=== PATIENT | female | born 1945 | race Caucasian/White ===

== ENCOUNTER 2018-03-06 14:45 | Inpatient (IN) | payer MEDICARE, OTHER ==
[2018-03-06] MEDS: LACTULOSE 20 GM/30 ML UDC PO SCH ×2 (15:55→22:00)
[2018-03-06] MEDS: PROPRANOLOL HCL 10 MG TABLET PO SCH ×2 (15:55→22:03)
--- NOTE | 2018-03-06 16:49 | Rehab Evaluation ---
Patient Information - Patient Information Diagnosis: general deconditioning d/t R humeral fx s/p fall Ordered Treatment: OT Evaluate and Treat Status: Initial Evaluation Surgery: No Past Medical/Surgical Hx: PAST MEDICAL/SURGICAL HISTORY Past Surgical History Abd surgery for adhesions of intestinal tract. ; T&A PMH - Respiratory Hx Respiratory Disorders Yes Comment: lung disease PMH - Cardiovascular Hx Cardiovascular Disorders No PMH - Neuro Hx Neurological Disorders Yes Hx Dementia Yes PMH - GI Hx Liver Disease Yes Hx Rectal Bleeding Yes: Varices Comment: portal hypertension and cirrhosis PMH - Hx Genitourinary Disorders No PMH - Endocrine Hx Endocrine Disorders Yes Hx Diabetes Yes Hx Thyroid Disease No PMH - Musculoskeletal Hx Musculoskeletal Disorders No Hx Arthritis Yes PMH - Psych Hx Psychiatric Problems No PMH - Hematology/Oncology Hx Hematology/Oncology No Disorders Premorbid Status: Detail (Pt. was modified Ind. with mobility (with use of small base quad cane) prior to fall. Modified Ind. with self-care skills and indoor household management. Pt. has not driven since 2014, and receives assistance from her friend Heron with transportation and to bring groceries as needed. Pt. previously stood while showering 2-3x/week, and took sponge baths in between as needed. Pt. 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 currently lives alone in a 1 story house with basement. 1 large step to enter with railing on L side ascending. Pt. does not go into the basement; all needs are met on main floor, including laundry. Bathroom has a standard toilet with no grab bars, and tub/shower combo with curtain, fixed shower head, and 1 grab bar. Pt. stated she has everything in boxes and plans to move but was unsure of when.) Precautions: [place], Fall, Other ([id number] on RUE. Wear sling.) - Time With Patient Total Time Spent With Patient (Min): 30 Treatment Procedures: Detail (OT Edgar Olsen. Session was concluded with pt. supine in bed, bed rails up, call light and bedside tray within reach of LUE.) Subjective Information - Subjective Information Per Patient (L hand dominant. Pt. hx and subjective information was sometimes unclear from pt's loquacious report with disorganized thought pattern. Questions were asked to obtain more specifics, but this seemed to lead to greater confusion.) Objective Data - Pain Pain Present: Yes (04/16 pain RUE. Nursing staff is aware.) - Mental Status Patient Orientation: Oriented x3 (Pt. may have some mild neurocognitive deficits , but is unclear at this time (see subjective section).) - Visual Perception Appears within normal limits for therapeutic activities - ROM Other (LUE AROM WNL all motions. RUE NT at this time d/t high pain level and pt. declined.) - Strength/Tone Other (LUE MMT 4/5. RUE NT at this time d/t contraindications.) - Bed Mobility Independent (Pt. was modified Ind. supine with HOB raised to seated EOB with use of bed rail.) - Transfers Independent (modified Ind. sit<>stand from EOB to cane) - Balance Balance Sitting: Fair (Pt. required some LUE support while seated when PT was testing strength in LE, and while seated on toilet to doff briefs (while lifting one LE).) Balance Standing: Fair (modified Ind. with use of cane. PT will assess balance further.) - ADL's/IADL's Detail (Educ. was provided in use of buttons to control movement of bed using LUE to increase Ind. with bed mobility. Min A to thread LE into briefs while doffing and donning seated on toilet (pt. required UE support on grab bar while lifting a LE). Min A to manage clothing (pull up on R side) during toileting. Pt. became quickly fatigued (approx. 2 mins. into session), and required a rest break to lay in bed.) Therapy Assessment - Therapy Assessment Detail (Pt. would benefit from skilled OT services to maximize safety and Ind. in ADL's.) Patient Education - Patient Education Teaching Topic: Equipment Use (manipulation of environment, bed controls) Response: Return Demonstration, Verbalize Understanding Teaching Method: Discussion, Demonstration Teaching Recipient: Patient Barriers To Learning: Cognitive/Verbal, Cognitive/Written Problem List - Problem List Occupational Therapy Problem List: Detail (Decreased independence and safety with ADL's, impaired ROM and strength RUE, decreased strength LUE, decreased tolerance for activity participation (endurance)) Goals - Goals Occupational Therapy Goals: 1) Test RUE AROM per pt's tolerance. 2) Pt. will demo. ability to safely dress TB with modified Ind. 3) Pt. will demo. tub t/f safely with modified Ind. 4) Pt. will increase activity tolerance to at least 10 mins. to allow pt. to complete typical morning ADL routine with no more than 3 seated rest breaks. 5) Maximize bilateral site surveyor strength to minimize R muscular atrophy. 6) Maximize RUE AROM (per pt's tolerance and precautions) to prevent adhesive capsulitis and other joint problems. Prognosis - Prognosis Good Plan - Plan Occupational Therapy Plan: Pt. will be seen 2-4 x/week Mon-Fri during typical business hours until OT goals are met and/or pt. is d/c.
--- NOTE | 2018-03-06 17:18 | Rehab Evaluation ---
Patient Information - Patient Information Diagnosis: general deconditioning d/t R humeral fx s/p fall Ordered Treatment: PT Evaluate and Treat Status: Initial Evaluation Surgery: No Past Medical/Surgical Hx: PAST MEDICAL/SURGICAL HISTORY Past Surgical History Abd surgery for adhesions of intestinal tract. ; T&A PMH - Respiratory Hx Respiratory Disorders Yes Comment: lung disease PMH - Cardiovascular Hx Cardiovascular Disorders No PMH - Neuro Hx Neurological Disorders Yes Hx Dementia Yes PMH - GI Hx Liver Disease Yes Hx Rectal Bleeding Yes: Varices Comment: portal hypertension and cirrhosis PMH - Hx Genitourinary Disorders No PMH - Endocrine Hx Endocrine Disorders Yes Hx Diabetes Yes Hx Thyroid Disease No PMH - Musculoskeletal Hx Musculoskeletal Disorders No Hx Arthritis Yes PMH - Psych Hx Psychiatric Problems No PMH - Hematology/Oncology Hx Hematology/Oncology No Disorders Premorbid Status: Detail (Pt. was modified Ind. with mobility (with use of small base quad cane) prior to fall. Modified Ind. with self-care skills and indoor household management. Pt. has not driven since 2014, and receives assistance from her friend Heron with transportation and to bring groceries as needed. Pt. previously stood while showering 2-3x/week, and took sponge baths in between as needed.) Social History: Detail (Pt. currently lives alone in a 1 story house with basement. 1 large step to enter with railing on L side ascending. Pt. does not go into the basement; all needs are met on main floor, including laundry. Bathroom has a standard toilet with no grab bars, and tub/shower combo with curtain, fixed shower head, and 1 grab bar.) Precautions: [place], Fall, Other ([id number] on RUE. Wear sling.) - Time With Patient Total Time Spent With Patient (Min): 30 Treatment Procedures: Detail (Initial Evaluation) Subjective Information - Subjective Information Per Patient (The patient complained of R shoulder pain ( deltoid region)) Objective Data - Pain Pain Present: Yes Pain Intensity: 9 Pain Scale Used: Numeric (1 - 10) - Mental Status Patient Orientation: Oriented x3 (The patient was tangetial at times, disorganized thought pattern.) - Visual Perception Appears within normal limits for therapeutic activities - ROM Within normal limits (LE AROM was WNL refer to OT note UE AROM.) - Strength/Tone Not within normal limits (LE strength was 4+/5 in knee and ankle musculature , hip musculature was 4/5.) - Bed Mobility Independent (Independent supine to and from sit transfer.) - Transfers Independent (sit to and from stand. Supervison for safety with toilet transfer.) - Balance Balance Sitting: Fair (The patient used arm support when lifting one LE both on toilet and on bed.) Balance Standing: Fair (The patient required hand hold to ambulate.) - Gait Detail (The patient ambulated with hand hold of one 13 feet x 2. The patient expressed fatigue after ambulation. The patient was given a small base quad cane to use since she stated this is what she used at home.) Therapy Assessment - Therapy Assessment Detail (The patient exhibited decreased balance, decreased hip strength and decreased ability to complete prolonged functional activities. Feel the patient is a good rehab candidate.) Problem List - Problem List Physical Therapy Problem List: Detail (1) Decreased balance 2) Decreased bilateral hip strength 3) Decreased ability to complete porlonged physical activity.) Goals - Goals Physical Therapy Goals: 1) The a patient will ambulate with assistive device distances of 150 feet. 2) The patient will ambulate on stairs independently with use of railings. 3) Increase LE strength 1/3 muscle grade to increase stability of gait. 4) Assess balance using objective balance test. 5) The patient will toilet 30 minutes of physical activity. Prognosis - Prognosis Good Plan - Plan Physical Therapy Plan: PT M-F for balance and LE strengthening exercises, gait training and level and stairs.
[2018-03-06] MEDS: HYDROCODONE/APAP 5/325MG TABLET PO PRN ×2 (19:00→23:02)
[2018-03-06] MEDS: CHOLECALCIFEROL 1,000 UNIT TABLET PO SCH (22:04)
[2018-03-06] MEDS: FERROUS SULFATE 325 MG TAB PO SCH (22:05)
[2018-03-07] MEDS: HYDROCODONE/APAP 5/325MG TABLET PO PRN ×2 (04:07→08:04)
[2018-03-07] MEDS: LEVOTHYROXINE SODIUM 75 MCG TABLET PO SCH (06:46)
[2018-03-07] MEDS: CHOLECALCIFEROL 1,000 UNIT TABLET PO SCH ×3 (08:05→21:48)
[2018-03-07] MEDS: FERROUS SULFATE 325 MG TAB PO SCH ×3 (08:05→21:48)
[2018-03-07] MEDS: PROPRANOLOL HCL 10 MG TABLET PO SCH ×4 (08:05→21:48)
[2018-03-07] MEDS: LACTULOSE 20 GM/30 ML UDC PO SCH ×4 (08:06→21:52)
[2018-03-07] MEDS: GUAIFENESIN 600 MG TABCR PO SCH ×2 (09:33→09:37)
[2018-03-07] MEDS: MULTIVITAMINS/MINERALS TABLET PO SCH (09:38)
[2018-03-07] MEDS: SPIRONOLACTONE 25 MG TAB PO SCH (09:38)
--- NOTE | 2018-03-07 12:07 | History & Physical ---
History of Present Illness - Date Date of Service for History & Physical: 03/07/18 - History of Present Illness Admitting Diagnosis: Deconditioning due to fractured right humerus History of Present Illness: Alma Rosa Castaneda is a 73 year old female who admitted to [facility] on 03/01/2018 after sustaining a right proximal humerus fracture d/t a mechanical fall in her home as well as osteoporosis. She was followed by orthopedist Dr. Moyer while hospitalized. No surgical intervention was done. While hospitalized, she received a CT of her head and cervical spine which were negative for acute process. D/t physical deconditioning and pain control, pt required further pt/ot services. 03/07/2018: Pt is a poor historian at this time and it is difficult to ascertain medical history. She reports that she has a hx of HTN but doesn't know what meds she takes for it, that she was told once that she had diabetes but "keeps it controlled, less than 200, with food" and that she has been "spilling ammonia since 2014". Review of the her records indicates PMHx of HTN, Cirrhosis of Liver , Dementia, hypothyroidism, diabetes mellitus and GERD. States that her PCP is Dr. Venegas. Pt c/o pain 5/10 at rest in the right upper arm that is "not tolerable". Reports numbness and tingling in right finger tips. Pt is taking [place] 5/235mg nearly every 4 hours. Vitals: BP 94/50, HR 56 which are similar to recordings while hospitalized at [facility] and no adjustments were made to propranolol or spironolactone. Pt denies dizziness or lightheadedness. General - Customary Routine Typical Morning Leisure Routine: gets up early (5am) and reads or works on bills when there are no distractions Typical Evening Leisure Routine: goes to bed [id number] - Cognitive Patterns Speech: Normal Thought Process: Intact Thought Content: Normal Orientation: Oriented x3 Brief Interview for Mental Status Score: 14 - Communication Preferred Language?: Ivorian Dispatcher Service Chief Required: No Level of Education: College Preferred Method of Learning: Seeing, Doing, Reading Comprehension Ability: No Impairment Able to Read: Yes Able to Write: Yes Select best description of speech pattern: Clear Speech Ability to express ideas and wants: Understood Understanding verbal content: Understands - Mood and Behavior Patterns Appearance: Well Groomed Mood: Normal Attitude: Cooperative Motor Activity: Calm Affect: Appropriate Hallucinations: Denies - Patient Health Questionnaire (PHQ-9) Little interest or pleasure in doing things frequency: Never or 1 day Feeling down, depressed, or hopeless frequency: Never or 1 day Trouble falling/staying asleep or sleeping to much frequency: Never or 1 day Feeling tired or having little energy frequency: Never or 1 day Poor appetite or overeating frequency: Never or 1 day Feeling bad about yourself frequency: Never or 1 day Trouble concentrating on things frequency: 2-6 days Moving/Speaking slowly or fidgety/restless frequency: Never or 1 day Thoughts that you would be better off frequency: Never or 1 day - Psychosocial Well-Being Usual Living Arrangement: Alone Living Arrangement Comment: Lives alone in apartment. Relationship Status: Current and Past Employment History: Retired Clubs/Organizations Belongs To: none Scientology: Other Scientology Comment: metaphysical latter-day Spiritual Needs: none stated Shinto: Metaphysical Verbalizes Interest in Activities During Stay: Yes Specify Interests: knitting, needlepoint, tv (animal planet and hgtv), comedy, reading Personality: Introverted States they do not want to participate in group activities: Yes (states does not like groups) Patient Involved in the Community: No Describe Involvement: none at this time Patient Drives: No Patients Leisure Activities Prior to Admission: knitting, tv, needlepoint Plans to Return to the Following Leisure Activities: see above - Physical Functioning Activity Level: Up with assist x1 Turning: Self ad tatiana ROM Ability: Within Normal Limits Assistive Devices: Quad Cane Ambulation Ability: Independent Bed Mobility: Needs Assist Transfer Ability: Needs Assist Bathing Ability: Independent Personal Hygiene: Needs Assist Dressing Ability: Independent Eating (Feeding) Ability: Independent Toileting Ability: Independent Administer Own Medication: Independent Care Ability Comment: Needs assistance with ADL's due to inability to use right arm-cont. in sling. - Dental Status Unable to examine: No Broken or loosely fitting full or partial dentures: No No natural teeth or tooth fragment(s) (edentulous): No Abnormal mouth tissue (ulcers, masses, oral lesions, etc.): No Obvious or likely cavity or broken natural teeth: No Inflamed or bleeding gums or loose natural teeth: No Mouth/facial pain, discomfort or difficulty chewing: No - Nutrition Screening Poor oral intake > 1 week: No Unplanned weight loss in specified time frame: No Nutrition Support via tube feedings or parenteral nutrition: No Pressure Ulcer: No Significantly underweight define as BMI <18.5 kg/m2: No Albumin <2.5mg/dL: No Persistent nausea/vomiting/diarrhea >3 days: No Difficulty chewing/swallowing/mouth sores: No Admitting Diagnosis: Yes Nutrition Risk Score: Low Risk Review of Systems Constitutional: Denies: Fever, Weakness Respiratory: Denies: Cough, Dyspnea, Wheezes Cardiovascular: Reports: Dyspnea on exertion. Denies: Chest pain Gastrointestinal: Denies: Abdominal pain, Constipation, Nausea Musculoskeletal: Reports: As per HPI Skin: Reports: Bruising Neurological: Reports: Headache, Numbness (Right hand finger tips), Tingling ( right hand fingertips). Denies: Confusion (Denies but stated "My friend Heron thinks I am loopy right now.") Psychiatric: Denies: Anxiety, Depression Past Medical History - SOCIAL HISTORY Smoking Status: Never smoker Alcohol Use: None Drug use: None - SURGICAL HISTORY Past Surgical History: Abd surgery for adhesions of intestinal tract. ; T&A - RESPIRATORY Hx Respiratory Disorders: Yes Comment:: lung disease - CARDIOVASCULAR Hx Cardio Disorders: No Hx Hypertension: Yes - NEURO Hx Neuro Disorders: Yes Hx Dementia: Yes - GI Hx Liver Disease: Yes Comment:: portal hypertension and cirrhosis - Hx Genitourinary Disorders: No - ENDOCRINE Hx Endocrine Disorders: Yes Hx Diabetes: Yes Hx Thyroid Disease: No - MUSCULOSKELETAL Hx Musculoskeletal Disorders: No Hx Arthritis: Yes - PSYCH Hx Psych Problems: No - HEMATOLOGY/ONCOLOGY Hx Hematology/Oncology Disorders: No Family Medical History Any Significant Family History?: No Family Hx Comment (NOT TO BE USED IN PLACE OF ITEMS BELOW): Pt was adopted- history unknown H&P Meds/Allergies - Allergies Allergies: Allergies Allergy/AdvReac Type Severity Reaction Status Date / Time Penicillins [PENICILLINS] Allergy Unknown HYPERSENSIT Verified 12/20/13 15:58 IVITY - Home Medications Home Medications Medication Instructions Recorded Confirmed Last Taken Cholecalciferol (Vitamin D3) 2,000 unit PO BID 03/06/18 03/06/18 Unknown [Vitamin D3] Guaifenesin [Mucinex] 600 mg PO DAILY 03/06/18 03/06/18 Unknown Hydrocodone/Acetaminophen [[place] 1 each PO Q4H PRN 03/06/18 03/06/18 Unknown 5-325 Tablet] Levothyroxine Sodium [Synthroid] 75 mcg PO DAILY 03/06/18 03/06/18 Unknown Lima-3 Fatty Acids [Lima-3] 1,000 mg PO DAILY 03/06/18 03/06/18 Unknown Vitamin B Complex 1 each PO DAILY 03/06/18 03/06/18 Unknown - Active Medications Active Medications: Current Medications Acetaminophen (Tylenol 325mg) 650 mg PO TID [facility] Hydrocodone Bitart/Acetaminophen ([place] 7.5mg/325mg) 1 each PO Q8H PRN PRN Reason: PAIN - MOD TO SEVERE (5-10) Ferrous Sulfate (Iron) 325 mg PO BID [facility] Last Admin: 03/07/18 09:32 Dose: Not Given Guaifenesin (Mucinex) 600 mg PO DAILY [facility] Last Admin: 03/07/18 09:37 Dose: 600 mg Lactulose (Lactulose) 30 gm PO TID [facility] Last Admin: 03/07/18 09:32 Dose: Not Given Levothyroxine Sodium (Synthroid) 75 mcg PO DAILYTHY [facility] Last Admin: 03/07/18 06:46 Dose: 75 mcg Lidocaine (Lidoderm) 1 each TOP DAILY [facility] Multivitamins/Minerals (Centrum) 1 tab PO DAILY [facility] Last Admin: 03/07/18 09:38 Dose: 1 tab Pantoprazole Sodium (Protonix) 40 mg PO 1200 DEB[facility]AH Propranolol HCl (Inderal) 10 mg PO TID [facility] Last Admin: 03/07/18 09:32 Dose: Not Given Spironolactone (Aldactone) 100 mg PO DAILY [facility] Last Admin: 03/07/18 09:38 Dose: 100 mg Vitamin D (Vitamin D3) 2,000 unit PO BID [facility] Last Admin: 03/07/18 09:33 Dose: Not Given Physical Exam - Vital Signs Vital Signs: Vital Signs - Last 24 Hrs Temp Pulse Resp BP Pulse Ox 03/07/18 07:56 97.3 F L 56 L 16 94/50 95 03/06/18 20:00 97.5 F L 57 L 16 95/49 95 03/06/18 14:45 98.0 F 62 18 116/56 96 - General General Appearance: Alert, Cooperative, No acute distress Limitations: Physical limitation - Head Head exam: Normocephalic - Eye Eye exam: Normal appearance - ENT ENT exam: Mucous membranes moist - Neck Neck exam: Normal inspection - Respiratory Respiratory exam: Normal lung sounds bilaterally. negative: Accessory muscle use - Cardiovascular Cardiovascular Exam: Regular rate, Normal rhythm, Normal heart sounds Peripheral Pulses: 2+: Radial (R), Radial (L) - GI/Abdominal GI/Abdominal exam: Soft, Hyperactive bowel sounds. negative: Distended, Tenderness - Rectal Rectal exam: Deferred - exam: Deferred - Extremities Extremities exam: Pedal edema. negative: Calf tenderness, Tenderness - Neurological Neurological exam: Alert - Psychiatric Psychiatric exam: Other (tangential) - Skin Skin exam: Dry, Intact Discharge Potential - Discharge Needs Community Services Used Prior to Admission: Transportation Patient Discharge Plan Description: Return Home, Visiting Nurse Community Services Needed at Discharge: Occupational Therapy, Physical Therapy, Transportation Plan - Swing Bed Certification Initial Certification Due: 03/06/18 14 Day Re-Cert Due: 03/20/18 44 Day Re-Cert Due: 04/19/18 74 Day Re-Cert Due: 05/19/18 - Detailed Diagnosis and Plan (1) Physical deconditioning Current Visit: Yes Status: Acute Base Code: R53.81 - OTHER MALAISE Comment : 03/07/2018 -Transfer from [facility] d/t deconditioning from hospitalization r /t right humeral fracture after mechanical fall -PT/OT evaluation and treatment -NWB to RUE, pt to wear sling (2) Closed fracture of right proximal humerus Current Visit: Yes Status: Acute Base Code: S42.201A - UNSP FRACTURE OF UPPER END OF RIGHT HUMERUS, INIT Comment: 03/07/2018 -PT/OT evaluation and treatment -NWB RUE, wear sling -F/u with Dr. Moyer on 03/20/2018 (3) Pain due to fracture Current Visit: Yes Status: Acute Base Code: T14.8XXA - OTHER INJURY OF UNSPECIFIED BODY REGION, INITIAL ENCOUNTER Comment: 03/07/2018 -Scheduled Tylenol 650mg PO TID -Changed [place] to 7.5/325mg PO q. 8 hours PRN -Ordered Lidoderm patch on for 12 hours, off for 12 hours to right humerus (4) Hypotension Current Visit: Yes Status: Acute Base Code: I95.9 - HYPOTENSION, UNSPECIFIED Comment: 03/07/2018: -BP and HR congruent with [facility] records and no changes made -Continue Spironolactione 100mg daily and Propranolol 10mg TID -Should pt become symptomatic, will re-evaluate medication dosages -Monitor vital signs q. 12 hours (5) Full code status Current Visit: Yes Status: Acute Base Code: Z78.9 - OTHER SPECIFIED HEALTH STATUS Comment: 03/07/2018 -Pt is a full code (6) Diabetes mellitus Current Visit: Yes Status: Acute Base Code: E11.9 - TYPE 2 DIABETES MELLITUS WITHOUT COMPLICATIONS Comment: 03/07/2018 -Unclear history on Diabetes mellitus diagnosis and medication management -Start Accucheck q. am prior to breakfast to monitor
[2018-03-07] MEDS: ACETAMINOPHEN 325 MG TAB PO SCH ×3 (14:04→21:47)
[2018-03-07] MEDS: HYDROCODONE/APAP 7.5/325MG TABLET PO PRN (14:04)
[2018-03-07] MEDS: LIDOCAINE 5% PATCH TOP SCH (14:06)
--- NOTE | 2018-03-07 15:12 | Physical Therapy Tx Note ---
Physical Therapy Tx Note - Treatment Note Tolerated: Good Total Time Spent With Patient: 30 Physical Therapy Tx Note: Detail (Patient states right upper arm painful and sore today. Patient was ambulating to and from bathroom with nursing upon STRIP POLISHER arrival. Patient transferred sit to and from stand SBA x1. Patient ambulated 130 feet with quad cane SBA x1. Patient was instructed in correct gait pattern with quad cane. Patient performed the following exercises x10-15 reps each seated on edge of bed: glut squeezes, heel raises, toe raises, marching, hamstring sets, isometric hip abduction, isometric hip adduction, and LAQ. Patient transferred supine to sit independently. Patient reports feeling tired after treatment. Patient was left supine in bed with call light within reach.) Physical Therapy Problem List: Detail (1) Decreased balance 2) Decreased bilateral hip strength 3) Decreased ability to complete porlonged physical activity.) Physical Therapy Goals: 1) The a patient will ambulate with assistive device distances of 150 feet. 2) The patient will ambulate on stairs independently with use of railings. 3) Increase LE strength 1/3 muscle grade to increase stability of gait. 4) Assess balance using objective balance test. 5) The patient will toilet 30 minutes of physical activity. Prognosis: Good Physical Therapy Plan: PT M-F for balance and LE strengthening exercises, gait training and level and stairs.
[2018-03-07] MEDS: PANTOPRAZOLE SODIUM 40 MG TABLET PO SCH (16:11)
--- NOTE | 2018-03-07 16:36 | Occupational Therapy Tx Note ---
Occupational Therapy Tx Note - Treatment Note Tolerated: Fair Total Time Spent With Patient: 35 Occupational Therapy Treatment Note: Detail (Attempted to do ADL's at the sink ( wash face, brush hair & teeth), but pt. reported she already did that and was also already dressed. Pt. stated she didn't need help with LB dressing, but needed some assistance with UB dressing. Educ. with h/o and yellow putty provided in bilateral dairy laboratory technician & pinch strength HEP; pt. returned demo. and verbalized understanding but required multiple repetitions with majority of the exercises. Pt. required mod VC to use RUE instead of only L. RUE was removed from sling to participate in AROM; pt. used L hand to AAROM at times. Elbow flex , ext, forearm sup/pro, wrist flex, ext, and digits approx. 1x10 ea. slowly. Pt. required min [place] A to comprehend directions, and slow gentle PROM to extend elbow to full ROM (was not painful). Educ. was provided in importance of ROM exercises (especially full elbow ext); pt. verbalized understanding. Assistance was provided to don sling. Cont. POC and adv. as yana. Follow-up on putty HEP understanding.) Occupational Therapy Problem List: Detail (Decreased independence and safety with ADL's, impaired ROM and strength RUE, decreased strength LUE, decreased tolerance for activity participation (endurance)) Occupational Therapy Goals: 1) Test RUE AROM per pt's tolerance. 2) Pt. will demo. ability to safely dress TB with modified Ind. 3) Pt. will demo. tub t/f safely with modified Ind. 4) Pt. will increase activity tolerance to at least 10 mins. to allow pt. to complete typical morning ADL routine with no more than 3 seated rest breaks. 5) Maximize bilateral dairy laboratory technician strength to minimize R muscular atrophy. 6) Maximize RUE AROM (per pt's tolerance and precautions) to prevent adhesive capsulitis and other joint problems. Prognosis: Good (with pt. participation in therapy sessions (especially ADL training), and HEP.) Occupational Therapy Plan: Pt. will be seen 2-4 x/week Mon-Fri during typical business hours until OT goals are met and/or pt. is d/c.
[2018-03-07] MEDS: REMOVE PATCH 1 EACH MISC TD SCH (21:53)
[2018-03-08] MEDS: LEVOTHYROXINE SODIUM 75 MCG TABLET PO SCH (06:04)
[2018-03-08] MEDS: LACTULOSE 20 GM/30 ML UDC PO SCH ×4 (08:38→22:03)
[2018-03-08] MEDS: SPIRONOLACTONE 25 MG TAB PO SCH ×2 (08:39→09:16)
[2018-03-08] MEDS: MULTIVITAMINS/MINERALS TABLET PO SCH ×2 (08:39→09:16)
[2018-03-08] MEDS: PROPRANOLOL HCL 10 MG TABLET PO SCH ×4 (08:39→22:01)
[2018-03-08] MEDS: ACETAMINOPHEN 325 MG TAB PO SCH ×4 (08:40→22:01)
[2018-03-08] MEDS: CHOLECALCIFEROL 1,000 UNIT TABLET PO SCH ×3 (08:40→22:02)
[2018-03-08] MEDS: FERROUS SULFATE 325 MG TAB PO SCH ×3 (08:40→22:01)
[2018-03-08] MEDS: GUAIFENESIN 600 MG TABCR PO SCH ×3 (08:41→22:02)
[2018-03-08] MEDS: HYDROCODONE/APAP 7.5/325MG TABLET PO PRN ×2 (09:13→19:38)
[2018-03-08] MEDS: LIDOCAINE 5% PATCH TOP SCH (09:15)
--- NOTE | 2018-03-08 11:15 | Physical Therapy Tx Note ---
Physical Therapy Tx Note - Treatment Note Tolerated: Good Total Time Spent With Patient: 30 Physical Therapy Tx Note: Detail (Patient reports no new complaints. Patient transferred supine to sit independently. Patient transferred sit to and from stand x2 SBA x1. Patient ambulated 13 feet with quad cane x2 SBA x1. Patient donned pants min assist x1 to help get right LE in pants. Patient doffed gown and donned shirt with assistance. Patient doffed socks independently, donned socks with assistance. Patient donned shoes independently. Patient transferred sit to and from stand SBA x1. Patient ambulated 108 feet with quad cane SBA x1. Patient transferred sit to and from stand SBA x1. Patient transferred sit to supine independently. Patient tolerated treatment well. Patient required minimal verbal cueing to lead with correct foot, but displayed improved gait pattern today with cane. Patient reports fatigued after treatment. Patient was left supine in bed with call light within reach.) Physical Therapy Problem List: Detail (1) Decreased balance 2) Decreased bilateral hip strength 3) Decreased ability to complete porlonged physical activity.) Physical Therapy Goals: 1) The a patient will ambulate with assistive device distances of 150 feet. 2) The patient will ambulate on stairs independently with use of railings. 3) Increase LE strength 1/3 muscle grade to increase stability of gait. 4) Assess balance using objective balance test. 5) The patient will toilet 30 minutes of physical activity. Prognosis: Good Physical Therapy Plan: PT M-F for balance and LE strengthening exercises, gait training and level and stairs.
--- NOTE | 2018-03-08 14:17 | Physical Therapy Tx Note ---
Physical Therapy Tx Note - Treatment Note Tolerated: Good Total Time Spent With Patient: 30 Physical Therapy Tx Note: Detail (Pt sitting up at bedside upon arrival. Administered Tinetti gait and balance assessment: gait score 8/12, balance score 14/16 for total of = moderate risk for falls; score affected by use of assistive device, asymmetry of steps, mild deviation of path; stands with wide base of support upon arising, unsteady when nudged. Ambulated w/WBQC w/ CGA from bedside to hallway and back, about 48 feet. Transferred to bedside chair independently, then changed her mind and wanted to get back in bed. Did so independently. Replaced ice pack for shoulder; left in bed with bedside table and call light in reach. Nrsg notified.) Physical Therapy Problem List: Detail (1) Decreased balance 2) Decreased bilateral hip strength 3) Decreased ability to complete porlonged physical activity.) Physical Therapy Goals: 1) The a patient will ambulate with assistive device distances of 150 feet. 2) The patient will ambulate on stairs independently with use of railings. 3) Increase LE strength 1/3 muscle grade to increase stability of gait. 4) Assess balance using objective balance test: Tinetti on 03/08/18. 5) The patient will toilet 30 minutes of physical activity. Prognosis: Good Physical Therapy Plan: PT M-F for balance and LE strengthening exercises, gait training and level and stairs.
[2018-03-08] MEDS: PANTOPRAZOLE SODIUM 40 MG TABLET PO SCH (16:58)
[2018-03-08] MEDS: REMOVE PATCH 1 EACH MISC TD SCH (22:07)
[2018-03-09] MEDS: LEVOTHYROXINE SODIUM 75 MCG TABLET PO SCH (07:22)
[2018-03-09] MEDS: HYDROCODONE/APAP 7.5/325MG TABLET PO PRN ×2 (08:34→22:37)
[2018-03-09] MEDS: MULTIVITAMINS/MINERALS TABLET PO SCH (10:00)
[2018-03-09] MEDS: FERROUS SULFATE 325 MG TAB PO SCH ×2 (10:01→22:38)
[2018-03-09] MEDS: CHOLECALCIFEROL 1,000 UNIT TABLET PO SCH ×2 (10:01→22:38)
[2018-03-09] MEDS: GUAIFENESIN 600 MG TABCR PO SCH ×2 (10:02→22:39)
[2018-03-09] MEDS: ACETAMINOPHEN 325 MG TAB PO SCH ×3 (10:02→22:37)
[2018-03-09] MEDS: PROPRANOLOL HCL 10 MG TABLET PO SCH ×3 (10:02→22:38)
[2018-03-09] MEDS: LACTULOSE 20 GM/30 ML UDC PO SCH ×3 (10:03→22:35)
[2018-03-09] MEDS: LIDOCAINE 5% PATCH TOP SCH (10:03)
[2018-03-09] MEDS: SPIRONOLACTONE 25 MG TAB PO SCH (10:06)
--- NOTE | 2018-03-09 12:38 | Physical Therapy Tx Note ---
Physical Therapy Tx Note - Treatment Note Tolerated: Good Total Time Spent With Patient: 40 Physical Therapy Tx Note: Detail (Pt getting up to bathroom with nrsg upon arrival. Got dressed in bathroom w/nrsg. Assist to tie shoes. Sit/stand transfers independently using L UE for support. Ambulated w/o assistive device to nrsg station and back to bedside (about 130 feet), with CGA. Somewhat short of breath after walking. Rested for a few minutes, then performed 10 reps each of seated marching, sitting knee extension, heel/toe raises; isometric hip abduction, isometric hip adduction, isometric knee flexion. Performed standing balance exercises w/o UE support: marching in place x 20 steps, look over R/L shoulder x 3, balance in stride stances x 30 seconds each, walk 5 steps forward/ backward/right/left, all w/close SBA. No loss of balance but patient cautious and slightly unsteady in stride stances. Reported R arm pain at end of session , 4/10. Left sitting at edge of bed w/bedside table and call light in reach. Nrsg notified.) Physical Therapy Problem List: Detail (1) Decreased balance 2) Decreased bilateral hip strength 3) Decreased ability to complete porlonged physical activity.) Physical Therapy Goals: 1) The a patient will ambulate with assistive device distances of 150 feet. 2) The patient will ambulate on stairs independently with use of railings. 3) Increase LE strength 1/3 muscle grade to increase stability of gait. 4) Assess balance using objective balance test: Tinetti 22/ 28 on 03/08/18. 5) The patient will tolerate 30 minutes of physical activity. Prognosis: Good Physical Therapy Plan: PT M-F for balance and LE strengthening exercises, gait training and level and stairs.
[2018-03-09] MEDS: PANTOPRAZOLE SODIUM 40 MG TABLET PO SCH (14:32)
--- NOTE | 2018-03-09 15:37 | Occupational Therapy Tx Note ---
Occupational Therapy Tx Note - Treatment Note Tolerated: Fair Total Time Spent With Patient: 45 Occupational Therapy Treatment Note: Detail (Pt. was already dressed prior to therapy session. ADL re-training in pt's typical self-care routine standing at the sink to brush teeth, wash face, and brush hair with SBA. Pt. tolerated standing at the sink for approx. 5 minutes with occasional UE support, with no seated rest breaks. Toileting SBA with min VC educ. in one-handed clothing management. Pt. required grab bar with sit<>stand from standard toilet seat. Educ. with handout was provided to pt. in rehab protocol of humeral fracture d/ t pt's extreme guarding postures and apprehension to participate. Pt. verbalized understanding and was slightly less apprehensive to participate in ROM exercises. Gentle PROM to approx. 70 degrees flex (per pt's tolerance) 1x5; AAROM (pt. used other extremity to assist) with min [place] A from therapist elbow flex and ext, wrist flex & ext, forearm supination & pronation 1x10 ea.; AROM scapular elevation, retraction, & clocks 1x10 ea. to tolerance. Pt. 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 Showering was discussed with pt who reported she has not showered since before her fx. but does not shower very often at home d/t disliking bathroom set-up. Pt. takes sponge baths, and wishes to do so. Pt. voiced concern with ability to shower w/ arm fx, and educ. was provided in role of OT. After discussion, pt. is open to trying a shower with OT next week, but stated is "not ready for it yet". Plan: Cont. POC and adv. as yana. Attempt shower next session, or try bringing to therapy bathroom in out-pt. unit to provide educ. in tub t/f. Session was concluded with pt. supine in bed, and call button and bedside tray within reach of LUE.) Occupational Therapy Problem List: Detail (Decreased independence and safety with ADL's, impaired ROM and strength RUE, decreased strength LUE, decreased tolerance for activity participation (endurance)) Occupational Therapy Goals: 1) Test RUE AROM per pt's tolerance. 2) Pt. will demo. ability to safely dress TB with modified Ind. 3) Pt. will demo. tub t/f safely with modified Ind. 4) Pt. will increase activity tolerance to at least 10 mins. to allow pt. to complete typical morning ADL routine with no more than 3 seated rest breaks. 5) Maximize bilateral pulp grinder feeder strength to minimize R muscular atrophy. 6) Maximize RUE AROM (per pt's tolerance and precautions) to prevent adhesive capsulitis and other joint problems. Occupational Therapy Plan: Pt. will be seen 2-4 x/week Mon-Fri during typical business hours until OT goals are met and/or pt. is d/c.
[2018-03-09] MEDS: REMOVE PATCH 1 EACH MISC TD SCH (22:39)
[2018-03-10] MEDS: HYDROCODONE/APAP 7.5/325MG TABLET PO PRN ×2 (06:47→18:56)
[2018-03-10] MEDS: LEVOTHYROXINE SODIUM 75 MCG TABLET PO SCH (06:47)
[2018-03-10] MEDS: LACTULOSE 20 GM/30 ML UDC PO SCH ×4 (08:49→21:49)
[2018-03-10] MEDS: FERROUS SULFATE 325 MG TAB PO SCH ×3 (08:50→21:45)
[2018-03-10] MEDS: MULTIVITAMINS/MINERALS TABLET PO SCH ×2 (08:50→09:45)
[2018-03-10] MEDS: SPIRONOLACTONE 25 MG TAB PO SCH ×2 (08:51→09:45)
[2018-03-10] MEDS: PROPRANOLOL HCL 10 MG TABLET PO SCH ×4 (08:51→21:46)
[2018-03-10] MEDS: CHOLECALCIFEROL 1,000 UNIT TABLET PO SCH ×3 (08:51→21:45)
[2018-03-10] MEDS: GUAIFENESIN 600 MG TABCR PO SCH ×3 (08:52→21:48)
[2018-03-10] MEDS: LIDOCAINE 5% PATCH TOP SCH ×2 (08:55→09:54)
[2018-03-10] MEDS: ACETAMINOPHEN 325 MG TAB PO SCH ×4 (09:54→21:45)
[2018-03-10] MEDS: PANTOPRAZOLE SODIUM 40 MG TABLET PO SCH (16:17)
[2018-03-10] MEDS: REMOVE PATCH 1 EACH MISC TD SCH (21:52)
[2018-03-11] MEDS: LEVOTHYROXINE SODIUM 75 MCG TABLET PO SCH (06:17)
[2018-03-11] MEDS: ACETAMINOPHEN 325 MG TAB PO SCH ×4 (08:34→21:29)
[2018-03-11] MEDS: LIDOCAINE 5% PATCH TOP SCH (10:12)
[2018-03-11] MEDS: SPIRONOLACTONE 25 MG TAB PO SCH (10:13)
[2018-03-11] MEDS: LACTULOSE 20 GM/30 ML UDC PO SCH ×3 (10:13→21:28)
[2018-03-11] MEDS: GUAIFENESIN 600 MG TABCR PO SCH ×2 (10:13→21:29)
[2018-03-11] MEDS: MULTIVITAMINS/MINERALS TABLET PO SCH (10:14)
[2018-03-11] MEDS: CHOLECALCIFEROL 1,000 UNIT TABLET PO SCH ×2 (10:14→21:29)
[2018-03-11] MEDS: FERROUS SULFATE 325 MG TAB PO SCH ×2 (10:14→21:29)
[2018-03-11] MEDS: PROPRANOLOL HCL 10 MG TABLET PO SCH ×3 (10:15→21:32)
[2018-03-11] MEDS: HYDROCODONE/APAP 7.5/325MG TABLET PO PRN (15:33)
[2018-03-11] MEDS: PANTOPRAZOLE SODIUM 40 MG TABLET PO SCH (17:15)
[2018-03-11] MEDS: REMOVE PATCH 1 EACH MISC TD SCH (21:32)
[2018-03-12] MEDS: LEVOTHYROXINE SODIUM 75 MCG TABLET PO SCH (06:13)
[2018-03-12] MEDS: HYDROCODONE/APAP 7.5/325MG TABLET PO PRN (08:48)
[2018-03-12] MEDS: LACTULOSE 20 GM/30 ML UDC PO SCH ×4 (08:50→21:31)
[2018-03-12] MEDS: CHOLECALCIFEROL 1,000 UNIT TABLET PO SCH ×3 (08:51→21:32)
[2018-03-12] MEDS: FERROUS SULFATE 325 MG TAB PO SCH ×3 (08:52→21:32)
[2018-03-12] MEDS: GUAIFENESIN 600 MG TABCR PO SCH ×3 (08:52→21:31)
[2018-03-12] MEDS: MULTIVITAMINS/MINERALS TABLET PO SCH ×2 (08:52→10:03)
[2018-03-12] MEDS: SPIRONOLACTONE 25 MG TAB PO SCH (10:02)
[2018-03-12] MEDS: PROPRANOLOL HCL 10 MG TABLET PO SCH ×3 (10:04→22:27)
[2018-03-12] MEDS: ACETAMINOPHEN 325 MG TAB PO SCH ×3 (10:05→21:32)
[2018-03-12] MEDS ORDERED: CALCIUM CARBONATE 500 MG TAB.CHEW PO PRN (10:07)
--- NOTE | 2018-03-12 11:09 | Physical Therapy Tx Note ---
Physical Therapy Tx Note - Treatment Note Tolerated: Good Total Time Spent With Patient: 40 Physical Therapy Tx Note: Detail (Pt lying in bed upon arrival, awake/alert, cooperative for therapy. Independent bed mobility; independently donned shoes. Sit/stand w/SBA, ambulated from bedside to [id number] station w/o assistive device, w/CGA. Returned to bedside chair. Rested to catch breath. Performed 15 reps each B of seated marching, seated knee extension, toe raises, isometric hip adduction, isometric hip abduction, isometric knee flexion. Sit/stand transfers from bed and from chair independently. Performed standing balance tasks w/CGA/SBA: narrow DEISY w/eyes open/closed/head movements; stride stances with eyes open/closed; walk forward/backward/right/left. Sat in bedside chair for several minutes, then chose to return to bed. Doffed shoes independently, independently into bed. Call light and bedside table placed within reach.) Physical Therapy Problem List: Detail (1) Decreased balance 2) Decreased bilateral hip strength 3) Decreased ability to complete prolonged physical activity.) Physical Therapy Goals: 1) The a patient will ambulate with assistive device distances of 150 feet. 2) The patient will ambulate on stairs independently with use of railings. 3) Increase LE strength 1/3 muscle grade to increase stability of gait. 4) Assess balance using objective balance test: Tinetti on 03/08/18. 5) The patient will tolerate 30 minutes of physical activity. Prognosis: Good Physical Therapy Plan: PT M-F for balance and LE strengthening exercises, gait training and level and stairs.
[2018-03-12] MEDS: LIDOCAINE 5% PATCH TOP SCH (11:15)
--- NOTE | 2018-03-12 11:38 | Occupational Therapy Tx Note ---
Occupational Therapy Tx Note - Treatment Note Tolerated: Good Total Time Spent With Patient: 60 (ADL) Occupational Therapy Treatment Note: Detail (S: Pt resting in bed, ready for OT /shower. O: Supine to sit Indly. Pt amb to toilet with quad cane with SBA and toileted Indly. Doffed briefs and PJ gown with min assist. Doffed slippers Indly. Pt amb to shower and completed showering in sitting and standing with verbal cues and SBA with standing. Pt dried self Indly. Pt donned shirt with min assist and verbal cues for modified technique. Pt donned briefs and pants Indly with verbal cues for modified technique to rod puller and coiler hips. Pt donned socks Indly and tennis shoes with verbal cues for modified technique. Pt able to comb hair Indly. Amd to chair with quad cane and SBA. Pt donned UE sling with min assist. A: Pt required min assist and verbal cues for UE dressing and modified ADL technique.) Occupational Therapy Problem List: Detail (Decreased independence and safety with ADL's, impaired ROM and strength RUE, decreased strength LUE, decreased tolerance for activity participation (endurance)) Occupational Therapy Goals: 1) Test RUE AROM per pt's tolerance. 2) Pt. will demo. ability to safely dress TB with modified Ind. 3) Pt. will demo. tub t/f safely with modified Ind. 4) Pt. will increase activity tolerance to at least 10 mins. to allow pt. to complete typical morning ADL routine with no more than 3 seated rest breaks. 5) Maximize bilateral lavatory attendant strength to minimize R muscular atrophy. 6) Maximize RUE AROM (per pt's tolerance and precautions) to prevent adhesive capsulitis and other joint problems. Prognosis: Good Occupational Therapy Plan: Pt. will be seen 2-4 x/week Mon-Fri during typical business hours until OT goals are met and/or pt. is d/c.
[2018-03-12] MEDS: PANTOPRAZOLE SODIUM 40 MG TABLET PO SCH (17:08)
[2018-03-12] MEDS: REMOVE PATCH 1 EACH MISC TD SCH (21:32)
[2018-03-13] MEDS: LEVOTHYROXINE SODIUM 75 MCG TABLET PO SCH (06:05)
[2018-03-13] MEDS: HYDROCODONE/APAP 7.5/325MG TABLET PO PRN ×2 (06:36→20:42)
[2018-03-13] MEDS: SPIRONOLACTONE 25 MG TAB PO SCH (09:27)
[2018-03-13] MEDS: PROPRANOLOL HCL 10 MG TABLET PO SCH ×3 (09:28→21:53)
[2018-03-13] MEDS: MULTIVITAMINS/MINERALS TABLET PO SCH (09:28)
[2018-03-13] MEDS: LACTULOSE 20 GM/30 ML UDC PO SCH ×3 (09:28→21:54)
[2018-03-13] MEDS: FERROUS SULFATE 325 MG TAB PO SCH ×2 (09:28→21:53)
[2018-03-13] MEDS: LIDOCAINE 5% PATCH TOP SCH (09:29)
[2018-03-13] MEDS: GUAIFENESIN 600 MG TABCR PO SCH ×2 (09:29→21:53)
[2018-03-13] MEDS: ACETAMINOPHEN 325 MG TAB PO SCH ×3 (09:30→21:55)
[2018-03-13] MEDS: CHOLECALCIFEROL 1,000 UNIT TABLET PO SCH ×2 (09:31→21:53)
--- NOTE | 2018-03-13 10:26 | Occupational Therapy Tx Note ---
Occupational Therapy Tx Note - Treatment Note Tolerated: Good Total Time Spent With Patient: 30 (thex ex, ADL) Occupational Therapy Treatment Note: Detail (S: Pt ready for therapy. Pain continues in right UE. O: Supine to sit Indly and transferred to chair with quad cane Indly. Reviewed modified UE dressing technique verbally. Pt able to doff right UE sling Indly. She required verbal cues for doffing and donning shirt using modified technique. She reports increased pain with any activity. Pt completed AROM to right elbow flexion/extension, wrist flexion/extension and sponge squeezes x 10 reps each with verbal cues. Provided gentle passive stretch to right bicep to improve elbow extension. Pt transferred to EOB and sit to supine Indly. A: Pt requires verbal cues for modified UE dressing technique. Will continue to review UE AROM exercises to decrease pain.) Occupational Therapy Problem List: Detail (Decreased independence and safety with ADL's, impaired ROM and strength RUE, decreased strength LUE, decreased tolerance for activity participation (endurance)) Occupational Therapy Goals: 1) Test RUE AROM per pt's tolerance. 2) Pt. will demo. ability to safely dress TB with modified Ind. 3) Pt. will demo. tub t/f safely with modified Ind. 4) Pt. will increase activity tolerance to at least 10 mins. to allow pt. to complete typical morning ADL routine with no more than 3 seated rest breaks. 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 6) Maximize RUE AROM (per pt's tolerance and precautions) to prevent adhesive capsulitis and other joint problems. Prognosis: Good Occupational Therapy Plan: Pt. will be seen 2-4 x/week Mon-Fri during typical business hours until OT goals are met and/or pt. is d/c.
--- NOTE | 2018-03-13 10:38 | Physical Therapy Tx Note ---
Physical Therapy Tx Note - Treatment Note Tolerated: Good Total Time Spent With Patient: 20 (PT treatment was limited due to pain complaints and fatigue.) Physical Therapy Tx Note: Detail (The patient was in bed when PT arrived. The patient was fatigued secondary to not sleeping last night. The patient ambulated 134 feet x 1 without device, using UE to splint L side of ribs . The patient ambulated on 3 steps with use of one railing with supervision for safety and complaints of pain. The patient's LE HEP was reviewed including hip marching hip adduction/abduction, LAQ and ankle pumps x 5 reps each. The patient acheived supine to and from sit transfer independently with gaurded movement. Equipment at home was discussed including commode with handles and hospital bed. Treatment was limited secondary to pain.) Physical Therapy Problem List: Detail (1) Decreased balance 2) Decreased bilateral hip strength 3) Decreased ability to complete prolonged physical activity.) Physical Therapy Goals: 1) The a patient will ambulate with assistive device distances of 150 feet. 2) The patient will ambulate on stairs independently with use of railings. 3) Increase LE strength 1/3 muscle grade to increase stability of gait. 4) Assess balance using objective balance test: Tinetti / 28 on 03/08/18. 5) The patient will tolerate 30 minutes of physical activity. Physical Therapy Plan: PT M-F for balance and LE strengthening exercises, gait training and level and stairs.
[2018-03-13] MEDS: PANTOPRAZOLE SODIUM 40 MG TABLET PO SCH (11:19)
--- NOTE | 2018-03-13 11:40 | Physical Therapy Tx Note ---
Physical Therapy Tx Note - Treatment Note Tolerated: Good Total Time Spent With Patient: 30 Physical Therapy Tx Note: Detail (The patient was in bed when PT arrived. The patient had no complaints of pain. The patient ambulated with SBQC a distance of 100 feet x 1 with maximal verbal cues for proper technique. The patient tended to carry cane or place cane improperly with 2 bases of support instead of 4. The patient ambulated on 3 steps with use of wall for support descending and use of rail ascending with supervision for safety. The patient exhibited shortness of breath with activity. The patient completed the following balance exercises: sidestepping, back stepping, mid stride balance, Romberg position balance with eyes open and closed and turning in circles. The patient requires gaurding for safety during balance activities. The patient is not safe with quad cane may consider use of another device.) Physical Therapy Problem List: Detail (1) Decreased balance 2) Decreased bilateral hip strength 3) Decreased ability to complete prolonged physical activity.) Physical Therapy Goals: 1) The a patient will ambulate with assistive device distances of 150 feet. 2) The patient will ambulate on stairs independently with use of railings. 3) Increase LE strength 1/3 muscle grade to increase stability of gait. 4) Assess balance using objective balance test: Tinetti / on 03/08/18. 5) The patient will tolerate 30 minutes of physical activity. Physical Therapy Plan: PT M-F for balance and LE strengthening exercises, gait training and level and stairs.
[2018-03-13] MEDS: REMOVE PATCH 1 EACH MISC TD SCH (21:54)
[2018-03-14] MEDS: LEVOTHYROXINE SODIUM 75 MCG TABLET PO SCH (06:50)
[2018-03-14] MEDS: LACTULOSE 20 GM/30 ML UDC PO SCH ×3 (10:20→22:06)
[2018-03-14] MEDS: SPIRONOLACTONE 25 MG TAB PO SCH (10:21)
[2018-03-14] MEDS: MULTIVITAMINS/MINERALS TABLET PO SCH (10:21)
[2018-03-14] MEDS: CHOLECALCIFEROL 1,000 UNIT TABLET PO SCH ×2 (10:22→22:06)
[2018-03-14] MEDS: PROPRANOLOL HCL 10 MG TABLET PO SCH ×3 (10:22→22:07)
[2018-03-14] MEDS: FERROUS SULFATE 325 MG TAB PO SCH ×2 (10:22→22:07)
[2018-03-14] MEDS: ACETAMINOPHEN 325 MG TAB PO SCH ×3 (10:22→22:07)
[2018-03-14] MEDS: GUAIFENESIN 600 MG TABCR PO SCH ×2 (10:22→22:07)
[2018-03-14] MEDS: LIDOCAINE 5% PATCH TOP SCH (10:23)
--- NOTE | 2018-03-14 11:22 | Physical Therapy Tx Note ---
Physical Therapy Tx Note - Treatment Note Tolerated: Fair Total Time Spent With Patient: 30 Physical Therapy Tx Note: Detail (Patient states nauseous today. Patient was reclined in bed upon INTERNAL CONTROL SPECIALIST arrival. Patient was instructed to sit, INTERNAL CONTROL SPECIALIST left to get wheelchair upon INTERNAL CONTROL SPECIALIST return patient was standing. Patient ambulated feet with quad cane SBA x1. Patient required verbal cueing to use quad cane correctly. Patient unsteady when patient uses cane improperly. Patient transferred sit to and from stand SBA x1. Patient attempted to perform tub transfer with handhold assist x1 but was unable to complete. Patient transferred sit to and from stand SBA x1. Patient performed the following exercises x10-20 reps each: LAQ, seated marching, and standing marching. Patient performed the following balance exercises x60 seconds each: feet together with eyes closed, and stride stance bilateral. Patient transferred sit to supine independently. Patient tolerated treatment well. Patient declined further exercises due to nausea. Patient will often neglect to use cane when performing sit to and from stand transfer or stand to sit. Patient was left reclined in bed with call light within reach.) Physical Therapy Problem List: Detail (1) Decreased balance 2) Decreased bilateral hip strength 3) Decreased ability to complete prolonged physical activity.) Physical Therapy Goals: 1) The a patient will ambulate with assistive device distances of 150 feet. 2) The patient will ambulate on stairs independently with use of railings. 3) Increase LE strength 1/3 muscle grade to increase stability of gait. 4) Assess balance using objective balance test: Tinetti 22/ 28 on 03/08/18. 5) The patient will tolerate 30 minutes of physical activity. Prognosis: Good Physical Therapy Plan: PT M-F for balance and LE strengthening exercises, gait training and level and stairs.
[2018-03-14] MEDS: PANTOPRAZOLE SODIUM 40 MG TABLET PO SCH (13:06)
--- NOTE | 2018-03-14 15:29 | Occupational Therapy Tx Note ---
Occupational Therapy Tx Note - Treatment Note Tolerated: Good Total Time Spent With Patient: 30 (ADL, ther ex) Occupational Therapy Treatment Note: Detail (S: Pt resting at EOB. O: Sit to stand and transferred to chair Indly. Reviewed modified dressing technique. Pt donned button down shirt with verbal cues for technique. She reports she will be wearing lose fitting shirts after discharge. Pt stood and completed 10 reps of left elbow flexion/extension, wrist flexion/extension and gross grasp using sponge. Pt transferred back to EOB and to supine Indly. A: Pt cont. to require verbal cueing for modified UE dressing technique.) Occupational Therapy Problem List: Detail (Decreased independence and safety with ADL's, impaired ROM and strength RUE, decreased strength LUE, decreased tolerance for activity participation (endurance)) Occupational Therapy Goals: 1) Test RUE AROM per pt's tolerance. 2) Pt. will demo. ability to safely dress TB with modified Ind. 3) Pt. will demo. tub t/f safely with modified Ind. 4) Pt. will increase activity tolerance to at least 10 mins. to allow pt. to complete typical morning ADL routine with no more than 3 seated rest breaks. 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 6) Maximize RUE AROM (per pt's tolerance and precautions) to prevent adhesive capsulitis and other joint problems. Prognosis: Good Occupational Therapy Plan: Pt. will be seen 2-4 x/week Mon-Fri during typical business hours until OT goals are met and/or pt. is d/c.
[2018-03-14] MEDS: REMOVE PATCH 1 EACH MISC TD SCH (22:07)
[2018-03-15] MEDS: HYDROCODONE/APAP 7.5/325MG TABLET PO PRN ×2 (06:21→18:35)
[2018-03-15] MEDS: LEVOTHYROXINE SODIUM 75 MCG TABLET PO SCH (06:21)
[2018-03-15] MEDS: SPIRONOLACTONE 25 MG TAB PO SCH (10:50)
[2018-03-15] MEDS: FERROUS SULFATE 325 MG TAB PO SCH ×2 (10:51→22:06)
[2018-03-15] MEDS: PROPRANOLOL HCL 10 MG TABLET PO SCH ×3 (10:51→22:09)
[2018-03-15] MEDS: MULTIVITAMINS/MINERALS TABLET PO SCH (10:51)
[2018-03-15] MEDS: LACTULOSE 20 GM/30 ML UDC PO SCH ×3 (10:52→22:08)
[2018-03-15] MEDS: LIDOCAINE 5% PATCH TOP SCH (10:53)
[2018-03-15] MEDS: GUAIFENESIN 600 MG TABCR PO SCH ×2 (10:55→22:06)
[2018-03-15] MEDS: ACETAMINOPHEN 325 MG TAB PO SCH ×3 (10:55→22:06)
[2018-03-15] MEDS: CHOLECALCIFEROL 1,000 UNIT TABLET PO SCH ×2 (11:00→22:06)
[2018-03-15] MEDS: PANTOPRAZOLE SODIUM 40 MG TABLET PO SCH (11:00)
--- NOTE | 2018-03-15 14:06 | Physical Therapy Tx Note ---
Physical Therapy Tx Note - Treatment Note Tolerated: Good Total Time Spent With Patient: 30 Physical Therapy Tx Note: Detail (Patient states has a slightly upset stomach today. Patient was supine in bed upon MISSIONARY COORDINATOR arrival. Patient transferred supine to sit independently. Patient donned socks independently. Patient transferred sit to and from stand SBA x1. Patient ambulated 130 feet with quad cane SBA x1. Patient displayed incorrect use of cane until corrected by the MISSIONARY COORDINATOR. Patient displays correct gait pattern with cane upon verbal cueing. Patient performed the following seated exercises x20 reps each: marching, LAQ, isometric hip adduction, heel raises, and toe raises. Patient transferred sit to supine independently. Patient tolerated treatment well. Patient reports no new complaints after treatment. Patient was left supine in bed with call light within reach.) Physical Therapy Problem List: Detail (1) Decreased balance 2) Decreased bilateral hip strength 3) Decreased ability to complete prolonged physical activity.) Physical Therapy Goals: 1) The a patient will ambulate with assistive device distances of 150 feet. 2) The patient will ambulate on stairs independently with use of railings. 3) Increase LE strength 1/3 muscle grade to increase stability of gait. 4) Assess balance using objective balance test: Tinetti / 28 on 03/08/18. 5) The patient will tolerate 30 minutes of physical activity. Prognosis: Good Physical Therapy Plan: PT M-F for balance and LE strengthening exercises, gait training and level and stairs.
--- NOTE | 2018-03-15 15:34 | Physical Therapy Tx Note ---
Physical Therapy Tx Note - Treatment Note Tolerated: Good Total Time Spent With Patient: 40 Physical Therapy Tx Note: Detail (Patient was supine in bed upon BANK BOSS arrival. Patient states no new complaints. Patient transferred sit to and from stand SBA x1. Patient started to ambulated from bed to bathroom without quad cane, but was reminded by BANK BOSS to use it. Patient continued to carry the cane into the bathroom. Patient transferred sit and from stand SBA x1. Patient ambulated 13 feet with quad cane SBA x1. Patient donned socks and shoes independently. Patient transferred sit to and from stand SBA x1. Patient ambulated 65 feet with quad cane SBA x1. Patient transferred sit to and from stand SBA x1. Patient performed the following balance exercises in parallel bars: marching x32 feet, walking backwards x32 feet, sidestepping x16 feet bilateral, DLS on foam x30 seconds, feet together on foam x30 seconds, feet together looking up and down on foam x30 seconds, feet together looking side to side on foam x30 seconds, feet together with eyes closed on foam x30 seconds, and stride stance on floor. Patient required several seated rest breaks with balance exercises due to fatigue. Patient transferred sit to and from stand SBA x1. Patient transferred sit to supine independently. Patient tolerated treatment well. Patient displays decreased balance with feet together with looking up and down, feet together with looking side to side, feet together with eyes closed, and stride stance. Patient was left supine in bed with call light within reach.) Physical Therapy Problem List: Detail (1) Decreased balance 2) Decreased bilateral hip strength 3) Decreased ability to complete prolonged physical activity.) Physical Therapy Goals: 1) The a patient will ambulate with assistive device distances of 150 feet. 2) The patient will ambulate on stairs independently with use of railings. 3) Increase LE strength 1/3 muscle grade to increase stability of gait. 4) Assess balance using objective balance test: Tinetti / 28 on 03/08/18. 5) The patient will tolerate 30 minutes of physical activity. Prognosis: Good Physical Therapy Plan: PT M-F for balance and LE strengthening exercises, gait training and level and stairs.
[2018-03-15] MEDS: REMOVE PATCH 1 EACH MISC TD SCH (22:10)
[2018-03-16] MEDS: LEVOTHYROXINE SODIUM 75 MCG TABLET PO SCH (06:23)
--- NOTE | 2018-03-16 09:58 | Physical Therapy Tx Note ---
Physical Therapy Tx Note - Treatment Note Tolerated: Good Total Time Spent With Patient: 30 Physical Therapy Tx Note: Detail (The patient was sleeping when PT arrived but was easily roused. The patient was independent with supine to and from sit independently, donned socks and shoes indpendently. The patient ambulated to bathroom with SBQC and verbal cues for safe use of cane. The patient completed UE exercises including scapular squeezes x 10 and codman's exercises x 30 seconds. The patient refused further exercises due to pain. The patient was taken to Rehab department and completed balance exercises including standing on foam with varying bases of support with perturbations, walking sideways and walking around obstacles. The patient exhibited shortness of breath with activity. The patient continues to require verbal cues for safety and exhibits poor safety judgement at times.) Physical Therapy Problem List: Detail (1) Decreased balance 2) Decreased bilateral hip strength 3) Decreased ability to complete prolonged physical activity.) Physical Therapy Goals: 1) The a patient will ambulate with assistive device distances of 150 feet. 2) The patient will ambulate on stairs independently with use of railings. 3) Increase LE strength 1/3 muscle grade to increase stability of gait. 4) Assess balance using objective balance test: Tinetti / on 03/08/18. 5) The patient will tolerate 30 minutes of physical activity. Physical Therapy Plan: PT M-F for balance and LE strengthening exercises, gait training and level and stairs.
[2018-03-16] MEDS: FERROUS SULFATE 325 MG TAB PO SCH ×2 (10:06→22:40)
[2018-03-16] MEDS: ACETAMINOPHEN 325 MG TAB PO SCH ×3 (10:06→22:41)
[2018-03-16] MEDS: LIDOCAINE 5% PATCH TOP SCH (10:06)
[2018-03-16] MEDS: GUAIFENESIN 600 MG TABCR PO SCH ×2 (10:07→22:41)
[2018-03-16] MEDS: LACTULOSE 20 GM/30 ML UDC PO SCH ×3 (10:07→22:41)
[2018-03-16] MEDS: MULTIVITAMINS/MINERALS TABLET PO SCH (10:07)
[2018-03-16] MEDS: PROPRANOLOL HCL 10 MG TABLET PO SCH ×3 (10:08→22:39)
[2018-03-16] MEDS: SPIRONOLACTONE 25 MG TAB PO SCH (10:08)
[2018-03-16] MEDS: CHOLECALCIFEROL 1,000 UNIT TABLET PO SCH ×2 (10:08→22:39)
[2018-03-16] MEDS: HYDROCODONE/APAP 7.5/325MG TABLET PO PRN (15:46)
--- NOTE | 2018-03-16 15:46 | Occupational Therapy Tx Note ---
Occupational Therapy Tx Note - Treatment Note Tolerated: Good Total Time Spent With Patient: 60 (ADL) Occupational Therapy Treatment Note: Detail (S: Pt resting in bed. Ready for therapy. O: Supine to sit Ind and ambulated [address] with quad cane. Pt transported to rehab kitchen via wheelchair. Pt stood and completed baking activity (cupcakes) involving opening containers, stirring, mixing, pouring and placing items in oven while standing and walking using right UE as an assist with verbal cues for modified techniques as needed. Pt had difficulty with placing cupcake marcus in oven and she reports she does not bake heavy items often and will plan to make pre-prepared foods temporarily. Pt transported back to room via wheelchair and transferred to EOB and to supine Indly. A: Ind with baking activity with mild difficulty placing heavy item in oven. Pt able to demonstrate one arm techniques and use of R UE for assist.) Occupational Therapy Problem List: Detail (Decreased independence and safety with ADL's, impaired ROM and strength RUE, decreased strength LUE, decreased tolerance for activity participation (endurance)) Occupational Therapy Goals: 1) Test RUE AROM per pt's tolerance. 2) Pt. will demo. ability to safely dress TB with modified Ind. 3) Pt. will demo. tub t/f safely with modified Ind. 4) Pt. will increase activity tolerance to at least 10 mins. to allow pt. to complete typical morning ADL routine with no more than 3 seated rest breaks. 5) Maximize bilateral clearing inspector strength to minimize R muscular atrophy. 6) Maximize RUE AROM (per pt's tolerance and precautions) to prevent adhesive capsulitis and other joint problems. Prognosis: Good Occupational Therapy Plan: Pt. will be seen 2-4 x/week Mon-Fri during typical business hours until OT goals are met and/or pt. is d/c.
[2018-03-16] MEDS: PANTOPRAZOLE SODIUM 40 MG TABLET PO SCH (15:58)
--- NOTE | 2018-03-16 17:11 | Physician Progress Note ---
Subjective - Date Date of Progress Note: 03/20/18 - Admitting Diagnosis Diagnosis: Deconditioning due to fractured right humerus - Subjective Nursing Care Plan Problem List Activity Intolerance (Swing Bed) Start: 03/06/18 15: 25 Freq: Status: Active Protocol: Created 03/06/18 15:25 RMD (Rec: 03/06/18 15:25 RMD [id number]) Altered Thought Process (Fall Risk) Start: 03/07/18 01: 45 Freq: Status: Active Protocol: Created 03/07/18 01:45 RCS (Rec: 03/07/18 01:45 RCS [id number]) Impaired Mobility (Fall Risk) Start: 03/07/18 01: 45 Freq: Status: Active Protocol: Created 03/07/18 01:45 RCS (Rec: 03/07/18 01:45 RCS [id number]) Knowledge Deficit (Swing Bed) Start: 03/06/18 15: 25 Freq: Status: Active Protocol: Created 03/06/18 15:25 RMD (Rec: 03/06/18 15:25 RMD [id number]) Pain (Swing Bed) Start: 03/06/18 15: 25 Freq: Status: Active Protocol: Created 03/06/18 15:25 RMD (Rec: 03/06/18 15:25 RMD [id number]) Risk for Injury (Fall Risk) Start: 03/07/18 01: 45 Freq: Status: Active Protocol: Created 03/07/18 01:45 RCS (Rec: 03/07/18 01:45 RCS [id number]) Subjective: The patient is awake, and alert but seems to be poorly oriented. She answers some questions appropriately but then becomes confused after a while. She also complains of feeling stiff but not in pain. She is lying in bed and appears comfortable in no distress. General - Cognitive Patterns Speech: Normal Thought Process: Intact Thought Content: Normal - Communication Select best description of speech pattern: Clear Speech Ability to express ideas and wants: Understood Understanding verbal content: Understands - Mood and Behavior Patterns Appearance: Well Groomed Mood: Normal Attitude: Cooperative Motor Activity: Calm Affect: Appropriate Hallucinations: Denies - Physical Functioning Activity Level: Up with assist x1 Turning: Self ad tatiana ROM Ability: Limited/Compromised Assistive Devices: Straight Cane Ambulation Ability: Independent Bed Mobility: Independent Transfer Ability: Independent Bathing Ability: Needs Assist Personal Hygiene: Independent Dressing Ability: Needs Assist Eating (Feeding) Ability: Independent Toileting Ability: Independent Administer Own Medication: Independent Care Ability Comment: asisit ance needed due to right arm placement in sling - Continence Bowel Pattern: Normal for Patient Bladder Pattern: Normal Meds/Allergies - Allergies Allergies Allergy/AdvReac Type Severity Reaction Status Date / Time Penicillins [PENICILLINS] Allergy Unknown HYPERSENSIT Verified 12/20/13 15:58 IVITY - Active Medications Current Medications Acetaminophen (Tylenol 325mg) 650 mg PO TID [facility] Last Admin: 03/16/18 15:45 Dose: 650 mg Hydrocodone Bitart/Acetaminophen ([place] 7.5mg/325mg) 1 each PO Q8H PRN PRN Reason: PAIN - MOD TO SEVERE (5-10) Last Admin: 03/16/18 15:46 Dose: 1 each Calcium Carbonate/Glycine (Tums) 1,000 mg PO BID PRN PRN Reason: INDIGESTION Last Admin: 03/14/18 10:26 Dose: 1,000 mg Ferrous Sulfate (Iron) 325 mg PO BID [facility] Last Admin: 03/16/18 10:06 Dose: 325 mg Guaifenesin (Mucinex) 600 mg PO BID [facility] Last Admin: 03/16/18 10:07 Dose: 600 mg Lactulose (Lactulose) 30 gm PO TID [facility] Last Admin: 03/16/18 15:46 Dose: 30 gm Levothyroxine Sodium (Synthroid) 75 mcg PO DAILYTHY [facility] Last Admin: 03/16/18 06:23 Dose: 75 mcg Lidocaine (Lidoderm) 1 each TOP DAILY [facility] Last Admin: 03/16/18 10:06 Dose: 1 each Miscellaneous (Remove Patch) 1 each TD QHS [facility] Last Admin: 03/15/18 22:10 Dose: 1 each Multivitamins/Minerals (Centrum) 1 tab PO DAILY [facility] Last Admin: 03/16/18 10:07 Dose: 1 tab Pantoprazole Sodium (Protonix) 40 mg PO 1200 [facility] Last Admin: 03/16/18 15:58 Dose: 40 mg Propranolol HCl (Inderal) 10 mg PO TID [facility] Last Admin: 03/16/18 15:46 Dose: Not Given Spironolactone (Aldactone) 100 mg PO DAILY [facility] Last Admin: 03/16/18 10:08 Dose: 100 mg Vitamin D (Vitamin D3) 2,000 unit PO BID [facility] Last Admin: 03/16/18 10:08 Dose: 2,000 unit Objective - Vital Signs Vital Signs: Vital Signs - Last 24 Hrs Temp Pulse Resp BP Pulse Ox 03/16/18 15:40 18 81/48 03/16/18 10:00 95 03/16/18 08:00 98.1 F 62 18 87/40 96 03/15/18 20:00 98.0 F 65 18 90/45 95 - General General Appearance: Alert, Cooperative, No acute distress Limitations: Physical limitation - Head Head exam: Normocephalic - Eye Eye exam: Normal appearance - ENT ENT exam: Mucous membranes moist - Neck Neck exam: Normal inspection - Respiratory Respiratory exam: Normal lung sounds bilaterally. negative: Accessory muscle use - Cardiovascular Cardiovascular Exam: Regular rate, Normal rhythm, Normal heart sounds Peripheral Pulses: 2+: Radial (R), Radial (L), Dorsalis Pedis (R), Dorsalis Pedis (L) - GI/Abdominal GI/Abdominal exam: Soft, Hyperactive bowel sounds. negative: Distended, Tenderness - Rectal Rectal exam: Deferred - exam: Deferred - Extremities Extremities exam: Pedal edema, Other (right arm in sling. Capillary refill 2 secs, strength 5/5). negative: Calf tenderness, Tenderness - Neurological Neurological exam: Alert - Psychiatric Psychiatric exam: Other (tangential) - Skin Skin exam: Dry, Intact H&P Results - Labs Labs Last 24 Hours: Laboratory Results - last 24 hr 03/16/18 06:54 POC Glucose 92 Discharge Potential - Discharge Needs Community Services Used Prior to Admission: Transportation Patient Discharge Plan Description: Return Home, Visiting Nurse Community Services Needed at Discharge: Occupational Therapy, Physical Therapy, Transportation Plan - Swing Bed Certification Initial Certification Due: 03/06/18 14 Day Re-Cert Due: 03/20/18 44 Day Re-Cert Due: 04/19/18 74 Day Re-Cert Due: 05/19/18 - Detailed Diagnosis and Plan (1) Closed fracture of right proximal humerus Current Visit: Yes Status: Acute Base Code: S42.201A - UNSP FRACTURE OF UPPER END OF RIGHT HUMERUS, INIT Comment: 03/16/2018 -PT/OT evaluation and treatment -NWB RUE, wear sling -F/u with Dr. Moyer on 03/20/2018 (2) Pain due to fracture Current Visit: Yes Status: Acute Base Code: T14.8XXA - OTHER INJURY OF UNSPECIFIED BODY REGION, INITIAL ENCOUNTER Comment: 03/16/2018 -[place] to 7.5/325mg PO q. 8 hours PRN,Tylenol 650mg PO TID -Ordered Lidoderm patch on for 12 hours, off for 12 hours to right humerus (3) Physical deconditioning Current Visit: Yes Status: Acute Base Code: R53.81 - OTHER MALAISE Comment : 03/16/2018 -Recent hospitalization [facility] s/p right humeral fracture after mechanical fall. -PT/OT daily -NWB to RUE, pt to wear sling (4) Full code status Current Visit: Yes Status: Acute Base Code: Z78.9 - OTHER SPECIFIED HEALTH STATUS Comment: 03/16/2018 -Pt is a full code
[2018-03-16] MEDS: REMOVE PATCH 1 EACH MISC TD SCH (22:41)
[2018-03-17] MEDS: HYDROCODONE/APAP 7.5/325MG TABLET PO PRN ×2 (00:09→21:36)
[2018-03-17] MEDS: LEVOTHYROXINE SODIUM 75 MCG TABLET PO SCH (06:39)
[2018-03-17] MEDS: SPIRONOLACTONE 25 MG TAB PO SCH (09:03)
[2018-03-17] MEDS: PROPRANOLOL HCL 10 MG TABLET PO SCH ×3 (09:03→21:34)
[2018-03-17] MEDS: FERROUS SULFATE 325 MG TAB PO SCH ×2 (09:03→21:36)
[2018-03-17] MEDS: MULTIVITAMINS/MINERALS TABLET PO SCH (09:03)
[2018-03-17] MEDS: LACTULOSE 20 GM/30 ML UDC PO SCH ×3 (09:03→21:34)
[2018-03-17] MEDS: GUAIFENESIN 600 MG TABCR PO SCH ×2 (09:04→21:34)
[2018-03-17] MEDS: ACETAMINOPHEN 325 MG TAB PO SCH ×3 (09:04→21:35)
[2018-03-17] MEDS: LIDOCAINE 5% PATCH TOP SCH (09:04)
[2018-03-17] MEDS: CHOLECALCIFEROL 1,000 UNIT TABLET PO SCH ×2 (09:05→21:36)
[2018-03-17] MEDS: PANTOPRAZOLE SODIUM 40 MG TABLET PO SCH (12:04)
[2018-03-17] MEDS: REMOVE PATCH 1 EACH MISC TD SCH (21:34)
[2018-03-18] MEDS: LEVOTHYROXINE SODIUM 75 MCG TABLET PO SCH (06:49)
[2018-03-18] MEDS: HYDROCODONE/APAP 7.5/325MG TABLET PO PRN ×2 (07:34→23:09)
[2018-03-18] MEDS: MULTIVITAMINS/MINERALS TABLET PO SCH (09:36)
[2018-03-18] MEDS: PROPRANOLOL HCL 10 MG TABLET PO SCH ×3 (09:36→21:16)
[2018-03-18] MEDS: SPIRONOLACTONE 25 MG TAB PO SCH (09:36)
[2018-03-18] MEDS: LACTULOSE 20 GM/30 ML UDC PO SCH ×3 (09:37→21:22)
[2018-03-18] MEDS: FERROUS SULFATE 325 MG TAB PO SCH ×2 (09:37→21:21)
[2018-03-18] MEDS: GUAIFENESIN 600 MG TABCR PO SCH ×2 (09:37→21:21)
[2018-03-18] MEDS: ACETAMINOPHEN 325 MG TAB PO SCH ×3 (09:37→21:21)
[2018-03-18] MEDS: LIDOCAINE 5% PATCH TOP SCH (09:37)
[2018-03-18] MEDS: CHOLECALCIFEROL 1,000 UNIT TABLET PO SCH ×2 (09:37→21:21)
[2018-03-18] MEDS: PANTOPRAZOLE SODIUM 40 MG TABLET PO SCH (12:18)
[2018-03-18] MEDS: REMOVE PATCH 1 EACH MISC TD SCH (21:22)
[2018-03-19] MEDS: LEVOTHYROXINE SODIUM 75 MCG TABLET PO SCH (06:26)
[2018-03-19] MEDS: HYDROCODONE/APAP 7.5/325MG TABLET PO PRN ×2 (07:26→16:53)
[2018-03-19] MEDS: MULTIVITAMINS/MINERALS TABLET PO SCH (10:09)
[2018-03-19] MEDS: ACETAMINOPHEN 325 MG TAB PO SCH ×3 (10:09→22:15)
[2018-03-19] MEDS: CHOLECALCIFEROL 1,000 UNIT TABLET PO SCH ×2 (10:09→22:15)
[2018-03-19] MEDS: LIDOCAINE 5% PATCH TOP SCH (10:09)
[2018-03-19] MEDS: GUAIFENESIN 600 MG TABCR PO SCH ×2 (10:10→22:14)
[2018-03-19] MEDS: FERROUS SULFATE 325 MG TAB PO SCH ×2 (10:10→22:15)
[2018-03-19] MEDS: LACTULOSE 20 GM/30 ML UDC PO SCH ×3 (10:10→22:14)
[2018-03-19] MEDS: PROPRANOLOL HCL 10 MG TABLET PO SCH ×3 (10:11→22:14)
[2018-03-19] MEDS: SPIRONOLACTONE 25 MG TAB PO SCH (10:12)
[2018-03-19] MEDS: PANTOPRAZOLE SODIUM 40 MG TABLET PO SCH (12:31)
--- NOTE | 2018-03-19 12:42 | Occupational Therapy Tx Note ---
Occupational Therapy Tx Note - Treatment Note Tolerated: Good Total Time Spent With Patient: 40 Occupational Therapy Treatment Note: Detail (Pt. declined with max attempts to practice tub t/f, stating that tub is larger than hers at home and she's just going to do "birdie baths" at home since she doesn't like her bathroom anyways. Pt. requested to shower. Req'd min A UB dressing; thought pocket was arm hole and could not seem to problem solve. Min VC to implement unilateral dressing techniques. Pt. was able to recall dressing techniques shortly after VC's when doffing shirt, but unable to recall and/or initiate Ind. after showering to don t-shirt. Declined with max attempts to dress LB at this time (including assistant socks), but was Ind. to don elastic briefs while seated. Pt. stated she typically stands while showering, but required use of a seat to bathe LB. Ind. with all supine<>sit EOB and sit<>stand t/f's. Session was concluded with pt. supine in bed, bedside try and call button within reach of LUE. Pt. was instructed to call for help before getting up or to finish dressing, especially d/t not wearing assistant socks. A: Pt. demo. increased activity tolerance, but cont. to have difficulty recalling adaptive dressing techniques and seemed unable to problem solve, even when given a significant amount of extra time. P: cont. to attempt tub t/f educ. (simulate if needed), and RUE exercises.) Occupational Therapy Problem List: Detail (Decreased independence and safety with ADL's, impaired ROM and strength RUE, decreased strength LUE, decreased tolerance for activity participation (endurance)) Occupational Therapy Goals: 1) Test RUE AROM per pt's tolerance. 2) Pt. will demo. ability to safely dress TB with modified Ind. 3) Pt. will demo. tub t/f safely with modified Ind. 4) Pt. will increase activity tolerance to at least 10 mins. to allow pt. to complete typical morning ADL routine with no more than 3 seated rest breaks. 5) Maximize bilateral assistant strength to minimize R muscular atrophy. 6) Maximize RUE AROM (per pt's tolerance and precautions) to prevent adhesive capsulitis and other joint problems. Occupational Therapy Plan: Pt. will be seen 2-4 x/week Mon-Fri during typical business hours until OT goals are met and/or pt. is d/c.
--- NOTE | 2018-03-19 13:50 | Physical Therapy Tx Note ---
Physical Therapy Tx Note - Treatment Note Tolerated: Good Total Time Spent With Patient: 25 Physical Therapy Tx Note: Detail (The patient was up and going to the bathroom when PT arrived. The patient completed the following exercises according to orthopedic surgeon's nonoperative shoulder fracture protocol: scapular squeezes , scapular clock, codman's seat and supine ER with cane in 15 degrees of abduction all x 10 reps. PT also completed PROM in flexion and ER 5 reps each within range indicated on protocol. The patient ambulated with standard cane a distance of 108 feet x 1 with CG of 1. Patient placed cane with better position vs. her SBQC, however the patient was unsure if she liked standard cane. The patient returned to bed with call light within reach. Patient will not be seen tomorrow am due to appt.) Physical Therapy Problem List: Detail (1) Decreased balance 2) Decreased bilateral hip strength 3) Decreased ability to complete prolonged physical activity.) Physical Therapy Goals: 1) The a patient will ambulate with assistive device distances of 150 feet. 2) The patient will ambulate on stairs independently with use of railings. 3) Increase LE strength 1/3 muscle grade to increase stability of gait. 4) Assess balance using objective balance test: Tinetti / 28 on 03/08/18. 5) The patient will tolerate 30 minutes of physical activity. Physical Therapy Plan: PT M-F for balance and LE strengthening exercises, gait training and level and stairs.
[2018-03-19] MEDS: REMOVE PATCH 1 EACH MISC TD SCH (22:16)
[2018-03-20] MEDS: LEVOTHYROXINE SODIUM 75 MCG TABLET PO SCH (07:00)
[2018-03-20] MEDS: HYDROCODONE/APAP 7.5/325MG TABLET PO PRN ×2 (07:00→15:46)
[2018-03-20] MEDS: LIDOCAINE 5% PATCH TOP SCH ×2 (08:49→09:22)
[2018-03-20] MEDS: CHOLECALCIFEROL 1,000 UNIT TABLET PO SCH ×3 (08:50→21:16)
[2018-03-20] MEDS: ACETAMINOPHEN 325 MG TAB PO SCH ×4 (08:50→21:16)
[2018-03-20] MEDS: GUAIFENESIN 600 MG TABCR PO SCH ×3 (08:50→21:15)
[2018-03-20] MEDS: FERROUS SULFATE 325 MG TAB PO SCH ×3 (08:50→21:16)
[2018-03-20] MEDS: PANTOPRAZOLE SODIUM 40 MG TABLET PO SCH ×2 (08:51→14:03)
[2018-03-20] MEDS: PROPRANOLOL HCL 10 MG TABLET PO SCH ×4 (08:51→21:15)
[2018-03-20] MEDS: MULTIVITAMINS/MINERALS TABLET PO SCH ×2 (08:51→09:21)
[2018-03-20] MEDS: LACTULOSE 20 GM/30 ML UDC PO SCH ×3 (09:21→21:15)
[2018-03-20] MEDS: SPIRONOLACTONE 25 MG TAB PO SCH (15:49)
[2018-03-20] MEDS: REMOVE PATCH 1 EACH MISC TD SCH (21:15)
[2018-03-21] MEDS: LEVOTHYROXINE SODIUM 75 MCG TABLET PO SCH (06:07)
[2018-03-21] MEDS: HYDROCODONE/APAP 7.5/325MG TABLET PO PRN (06:09)
--- NOTE | 2018-03-21 07:30 | CT SCAN REPORT ---
EXAM: CT OF THE BRAIN WITHOUT CONTRAST HISTORY: FALL. TECHNIQUE: Sequential axial images were obtained from the foramen magnum to the vertex without contrast administration. FINDINGS: The brain volume is normal. No large territorial infarct, hemorrhage , mass effect, or midline shift. No extraaxial fluid collection. The orbits, paranasal sinuses, and mastoid air cells are normal. IMPRESSION: NO ACUTE INTRACRANIAL ABNORMALITY IS APPRECIATED. JOB NUMBER: [id number] [facility]
--- NOTE | 2018-03-21 08:41 | Physician Progress Note ---
Subjective - Date Date of Progress Note: 03/21/18 - Admitting Diagnosis Diagnosis: Deconditioning due to fractured right humerus - Subjective Events since last encounter: 03/20/18: Patient returned to unit from orthopedic appointment. While transferring out of the wheelchair patient lost her footing and fell onto the floor, hitting her head on the wheelchair and wall. Patient did not lose consciousness, no change in mental status identified, no deformities to head or acute injury. No cervical pain reported or pain with palpation noted. No other injuries identified. CT head obtained, negative for acute process. Will continue with fall precautions for patient. Nursing Care Plan Problem List Activity Intolerance (Swing Bed) Start: 03/06/18 15: 25 Freq: Status: Active Protocol: Created 03/06/18 15:25 RMD (Rec: 03/06/18 15:25 RMD [id number]) Altered Thought Process (Fall Risk) Start: 03/07/18 01: 45 Freq: Status: Active Protocol: Created 03/07/18 01:45 RCS (Rec: 03/07/18 01:45 RCS [id number]) Impaired Mobility (Fall Risk) Start: 03/07/18 01: 45 Freq: Status: Active Protocol: Created 03/07/18 01:45 RCS (Rec: 03/07/18 01:45 RCS [id number]) Knowledge Deficit (Swing Bed) Start: 03/06/18 15: 25 Freq: Status: Active Protocol: Created 03/06/18 15:25 RMD (Rec: 03/06/18 15:25 RMD [id number]) Pain (Swing Bed) Start: 03/06/18 15: 25 Freq: Status: Complete Protocol: Created 03/06/18 15:25 RMD (Rec: 03/06/18 15:25 RMD [id number]) Edit Status 03/19/18 14:43 SS (Rec: 03/19/18 14:43 SS [id number]) Active=>Complete Risk for Injury (Fall Risk) Start: 03/07/18 01: 45 Freq: Status: Active Protocol: Created 03/07/18 01:45 RCS (Rec: 03/07/18 01:45 RCS [id number]) General - Cognitive Patterns Speech: Normal Thought Process: Intact Thought Content: Normal - Communication Select best description of speech pattern: Clear Speech Ability to express ideas and wants: Understood Understanding verbal content: Understands - Mood and Behavior Patterns Appearance: Well Groomed Mood: Normal Attitude: Cooperative Motor Activity: Calm Affect: Appropriate Hallucinations: Denies - Physical Functioning Activity Level: Up with assist x1 Turning: Self ad tatiana ROM Ability: Limited/Compromised Assistive Devices: Straight Cane Ambulation Ability: Independent Bed Mobility: Independent Transfer Ability: Independent Bathing Ability: Needs Assist Personal Hygiene: Independent Dressing Ability: Needs Assist Eating (Feeding) Ability: Independent Toileting Ability: Independent Administer Own Medication: Independent Care Ability Comment: assistance needed due to right arm placement in sling - Continence Bowel Pattern: Normal for Patient, Diarrhea Bladder Pattern: Normal Meds/Allergies - Allergies Allergies Allergy/AdvReac Type Severity Reaction Status Date / Time Penicillins [PENICILLINS] Allergy Unknown HYPERSENSIT Verified 12/20/13 15:58 IVITY - Active Medications Current Medications Acetaminophen (Tylenol 325mg) 650 mg PO TID [facility] Last Admin: 03/20/18 21:16 Dose: 650 mg Hydrocodone Bitart/Acetaminophen ([place] 7.5mg/325mg) 1 each PO Q8H PRN PRN Reason: PAIN - MOD TO SEVERE (5-10) Last Admin: 03/21/18 06:09 Dose: 1 each Calcium Carbonate/Glycine (Tums) 1,000 mg PO BID PRN PRN Reason: INDIGESTION Last Admin: 03/14/18 10:26 Dose: 1,000 mg Enoxaparin Sodium (Lovenox) 30 mg SQ DAILY [facility] Ferrous Sulfate (Iron) 325 mg PO BID [facility] Last Admin: 03/20/18 21:16 Dose: 325 mg Guaifenesin (Mucinex) 600 mg PO BID [facility] Last Admin: 03/20/18 21:15 Dose: Not Given Lactulose (Lactulose) 30 gm PO TID [facility] Last Admin: 03/20/18 21:15 Dose: Not Given Levothyroxine Sodium (Synthroid) 75 mcg PO DAILYTHY [facility] Last Admin: 03/21/18 06:07 Dose: 75 mcg Lidocaine (Lidoderm) 1 each TOP DAILY [facility] Last Admin: 03/20/18 09:22 Dose: Not Given Miscellaneous (Remove Patch) 1 each TD QHS [facility] Last Admin: 03/20/18 21:15 Dose: 1 each Multivitamins/Minerals (Centrum) 1 tab PO DAILY [facility] Last Admin: 03/20/18 09:21 Dose: Not Given Pantoprazole Sodium (Protonix) 40 mg PO 1200 [facility] Last Admin: 03/20/18 14:03 Dose: Not Given Propranolol HCl (Inderal) 10 mg PO TID [facility] Last Admin: 03/20/18 21:15 Dose: Not Given Spironolactone (Aldactone) 100 mg PO DAILY [facility] Last Admin: 03/20/18 15:49 Dose: 100 mg Vitamin D (Vitamin D3) 2,000 unit PO BID [facility] Last Admin: 03/20/18 21:16 Dose: 2,000 unit Objective - Vital Signs Vital Signs: Vital Signs - Last 24 Hrs Temp Pulse Resp BP Pulse Ox 03/20/18 20:00 97.7 F 66 18 96/44 94 L 03/20/18 15:20 98.2 F 69 16 107/51 91 L - General General Appearance: Alert, Cooperative, No acute distress Limitations: Physical limitation - Head Head exam: Normocephalic - Eye Eye exam: Normal appearance - ENT ENT exam: Mucous membranes moist - Neck Neck exam: Normal inspection - Respiratory Respiratory exam: Normal lung sounds bilaterally. negative: Accessory muscle use - Cardiovascular Cardiovascular Exam: Regular rate, Normal rhythm, Normal heart sounds Peripheral Pulses: 2+: Radial (R), Radial (L), Dorsalis Pedis (R), Dorsalis Pedis (L) - GI/Abdominal GI/Abdominal exam: Soft, Hyperactive bowel sounds. negative: Distended, Tenderness - Rectal Rectal exam: Deferred - exam: Deferred - Extremities Extremities exam: Pedal edema, Other (right arm in sling. Capillary refill 2 secs, strength 5/5). negative: Calf tenderness, Tenderness - Neurological Neurological exam: Alert - Psychiatric Psychiatric exam: Other (tangential) - Skin Skin exam: Dry, Intact H&P Results - Labs Labs Last 24 Hours: Laboratory Results - last 24 hr 03/21/18 06:57 POC Glucose 97 Discharge Potential - Discharge Needs Community Services Used Prior to Admission: Transportation Patient Discharge Plan Description: Return Home, Visiting Nurse Community Services Needed at Discharge: Occupational Therapy, Physical Therapy, Transportation Plan - Swing Bed Certification Initial Certification Due: 03/06/18 14 Day Re-Cert Due: 03/20/18 44 Day Re-Cert Due: 04/19/18 74 Day Re-Cert Due: 05/19/18
--- NOTE | 2018-03-21 08:42 | Swing Bed Certification/Recert ---
Initial Certification Due: 03/06/18 14 Day Re-Cert Due: 03/20/18 44 Day Re-Cert Due: 04/19/18 74 Day Re-Cert Due: 05/19/18 CERTIFICATION 3 CERTIFICATION OF PATIENT ADMISSION Required at time of admission. Due: 03/06/18 I certify that SNF services are required to be given on an inpatient basis because of the above named patient's need for [facility] care on a continuing basis for the condition(s) for which he/she was receiving inpatient hospital services prior to his/her transfer to the SNF. The patient's current needs for skilled care includes: [assistance with transfers in and out of bed, need for PT/OT] Carito Vázquez, N.P. 03/21/18
[2018-03-21] MEDS: LACTULOSE 20 GM/30 ML UDC PO SCH ×3 (09:23→22:27)
[2018-03-21] MEDS: GUAIFENESIN 600 MG TABCR PO SCH ×2 (09:24→22:28)
[2018-03-21] MEDS: MULTIVITAMINS/MINERALS TABLET PO SCH (09:24)
[2018-03-21] MEDS: CHOLECALCIFEROL 1,000 UNIT TABLET PO SCH ×2 (09:24→22:28)
[2018-03-21] MEDS: FERROUS SULFATE 325 MG TAB PO SCH ×2 (09:24→22:28)
[2018-03-21] MEDS: ACETAMINOPHEN 325 MG TAB PO SCH ×3 (09:24→22:27)
[2018-03-21] MEDS: LIDOCAINE 5% PATCH TOP SCH (09:24)
[2018-03-21] MEDS: PROPRANOLOL HCL 10 MG TABLET PO SCH ×3 (09:24→22:34)
[2018-03-21] MEDS: SPIRONOLACTONE 25 MG TAB PO SCH (09:24)
[2018-03-21] MEDS ORDERED: ENOXAPARIN 30 MG/0.3 ML SYR SQ SCH (10:00)
--- NOTE | 2018-03-21 11:27 | Physical Therapy Tx Note ---
Physical Therapy Tx Note - Treatment Note Tolerated: Good Total Time Spent With Patient: 35 Physical Therapy Tx Note: Detail (Patient states no new complaints. Patient was reclined in bed upon MUSEUM REGISTRAR arrival. Patient transferred supine to sit independently. Patient transferred sit to and from stand SBA x1. Patient ambulated in room while holding cane x11 feet SBA x1, despite instructions. Patient ambulated with cane x 119 feet SBA x1, using correct gait pattern with cane without verbal cueing. Patient transferred sit to and from stand SBA x1. Patient performed the following balance exercises: foam DLS x30 seconds, foam feet together x30 seconds, foam feet together looking up and down x30 seconds, foam feet together looking side to side x30 seconds, foam DLS with reaching to chest height x10 reps, foam DLS with reaching to waist height x10 reps, foam DLS with eyes closed x30 seconds, and tandem stance on floor x30 seconds bilateral. Patient transferred sit to supine independently. Patient tolerated treatment well. Patient required several seated rest breaks after ambulation, and with standing balance exercises due to fatigue. Patient displays decreased balance with feet together looking up and down, feet together with looking side to side, tandem stance, and DLS with eyes closed. Patient was left reclined in bed with call light within reach.) Physical Therapy Problem List: Detail (1) Decreased balance 2) Decreased bilateral hip strength 3) Decreased ability to complete prolonged physical activity.) Physical Therapy Goals: 1) The a patient will ambulate with assistive device distances of 150 feet. 2) The patient will ambulate on stairs independently with use of railings. 3) Increase LE strength 1/3 muscle grade to increase stability of gait. 4) Assess balance using objective balance test: Tinetti 22/ 28 on 03/08/18. 5) The patient will tolerate 30 minutes of physical activity. Prognosis: Good Physical Therapy Plan: PT M-F for balance and LE strengthening exercises, gait training and level and stairs.
[2018-03-21 12:43] LABS: HEMATOCRIT 23.1 % (35.0-47.0); MEAN CELL VOLUME 108.5 fl (81-97); MEAN CORPUSCULAR HGB CONC 30.3 g/dl (32-36); PLATELET COUNT 74 K/uL (130-400); RED BLOOD COUNT 2.13 M/uL (3.80-5.40); RED CELL DISTRIBUTION WIDTH 22.4 % (11.5-14.5); WHITE BLOOD COUNT W/O DIFF 2.6 K/uL (4.2-12.2)
[2018-03-21 12:47] LABS: MEAN CORPUSCULAR HEMOGLOBIN 32.8 pg (27-33)
[2018-03-21 12:48] LABS: ALB/GLOB RATIO 0.9 (1.1-1.8); ALBUMIN 2.7 g/dL (4.0-5.0); ALKALINE PHOSPHATASE 82 U/L (35-104); ALT/SGPT 21 U/L (<33); AST/SGOT 33 U/L (10.0-35.0); BLOOD UREA NITROGEN 14 mg/dL (8-23); CREATININE 0.9 mg/dL (0.5-0.9); EST GLOMERULAR FILTRATION RATE > 60 mL/min; GLUCOSE,RANDOM 128 mg/dL (74-109); TOTAL PROTEIN 5.6 g/dL (6.6-8.7)
[2018-03-21 13:06] LABS: ANISOCYTOSIS 1+; HYPOCHROMIA 2+; PLATELET ESTIMATE DECREASED (NORMAL)
--- NOTE | 2018-03-21 13:32 | Physical Therapy Tx Note ---
Physical Therapy Tx Note - Treatment Note Tolerated: Fair Total Time Spent With Patient: 15 Physical Therapy Tx Note: Detail (The patient was sleeping when PT arrived but easily roused. The patient reports her hemoglobin is low and she feels fatigued. PT treatment was shortened secondary to patient's increased fatigue level. The patient's balance was retested using the Tinetti Assessment Tool and remains . The patient's LE strength was retested and is generally 4+/ 5 throughout, initially the patient's strength was 4/5 in hip musculature and 4+ /5 in ankle and knee musculature. The patient returned to bed with call light within reach.) Physical Therapy Problem List: Detail (1) Decreased balance 2) Decreased bilateral hip strength 3) Decreased ability to complete prolonged physical activity.) Physical Therapy Goals: 1) The a patient will ambulate with assistive device distances of 150 feet. 2) The patient will ambulate on stairs independently with use of railings. 3) Increase LE strength 1/3 muscle grade to increase stability of gait. 4) Assess balance using objective balance test: Tinetti on 03/08/18. 5) The patient will tolerate 30 minutes of physical activity. Physical Therapy Plan: PT M-F for balance and LE strengthening exercises, gait training and level and stairs.
[2018-03-21 15:14] LABS: ABO GROUP A; ANTIBODY SCREEN NEGATIVE (NEGATIVE); RH TYPE POSITIVE
[2018-03-21 15:15] LABS: IMMED. SPIN CROSSMATCH COMPATIBLE
[2018-03-21] MEDS: PANTOPRAZOLE SODIUM 40 MG TABLET PO SCH (15:38)
[2018-03-21] MEDS: REMOVE PATCH 1 EACH MISC TD SCH (22:28)
[2018-03-22 06:38] LABS: HEMATOCRIT 24.7 % (35.0-47.0); HEMOGLOBIN 7.6 gm/dl (11.6-16.0); MEAN CELL VOLUME 105.6 fl (81-97); MEAN CORPUSCULAR HGB CONC 30.8 g/dl (32-36); MEAN PLATELET VOLUME 8.7 fl (7.4-10.4); PLATELET COUNT 66 K/uL (130-400); RED BLOOD COUNT 2.34 M/uL (3.80-5.40); WHITE BLOOD COUNT W/O DIFF 2.2 K/uL (4.2-12.2)
[2018-03-22 06:44] LABS: MEAN CORPUSCULAR HEMOGLOBIN 32.4 pg (27-33)
[2018-03-22] MEDS: LEVOTHYROXINE SODIUM 75 MCG TABLET PO SCH (06:47)
[2018-03-22 07:18] LABS: ANISOCYTOSIS 2+
[2018-03-22] MEDS: SPIRONOLACTONE 25 MG TAB PO SCH (09:03)
[2018-03-22] MEDS: PROPRANOLOL HCL 10 MG TABLET PO SCH ×3 (09:04→21:34)
[2018-03-22] MEDS: LIDOCAINE 5% PATCH TOP SCH (09:05)
[2018-03-22] MEDS: ACETAMINOPHEN 325 MG TAB PO SCH ×3 (09:06→21:37)
[2018-03-22] MEDS: GUAIFENESIN 600 MG TABCR PO SCH ×2 (09:06→21:37)
[2018-03-22] MEDS: HYDROCODONE/APAP 7.5/325MG TABLET PO PRN ×3 (09:07→22:14)
[2018-03-22] MEDS: MULTIVITAMINS/MINERALS TABLET PO SCH (09:08)
[2018-03-22] MEDS: LACTULOSE 20 GM/30 ML UDC PO SCH ×3 (09:08→21:37)
[2018-03-22] MEDS: FERROUS SULFATE 325 MG TAB PO SCH ×2 (09:09→21:36)
[2018-03-22] MEDS: CHOLECALCIFEROL 1,000 UNIT TABLET PO SCH ×2 (09:10→21:37)
[2018-03-22 10:42] LABS: IMMED. SPIN CROSSMATCH COMPATIBLE
--- NOTE | 2018-03-22 11:01 | Occupational Therapy Tx Note ---
Occupational Therapy Tx Note - Treatment Note Occupational Therapy Treatment Note: Detail (Pt has a court appointment today and will be out of the hospital therefore no OT scheduled today.) Occupational Therapy Problem List: Detail (Decreased independence and safety with ADL's, impaired ROM and strength RUE, decreased strength LUE, decreased tolerance for activity participation (endurance)) Occupational Therapy Goals: 1) Test RUE AROM per pt's tolerance. 2) Pt. will demo. ability to safely dress TB with modified Ind. 3) Pt. will demo. tub t/f safely with modified Ind. 4) Pt. will increase activity tolerance to at least 10 mins. to allow pt. to complete typical morning ADL routine with no more than 3 seated rest breaks. 5) Maximize bilateral organization development consultant strength to minimize R muscular atrophy. 6) Maximize RUE AROM (per pt's tolerance and precautions) to prevent adhesive capsulitis and other joint problems. Occupational Therapy Plan: Pt. will be seen 2-4 x/week Mon-Fri during typical business hours until OT goals are met and/or pt. is d/c.
[2018-03-22] MEDS: PANTOPRAZOLE SODIUM 40 MG TABLET PO SCH (12:05)
[2018-03-22] MEDS: REMOVE PATCH 1 EACH MISC TD SCH (21:37)
[2018-03-23] MEDS: LEVOTHYROXINE SODIUM 75 MCG TABLET PO SCH (06:15)
[2018-03-23 06:16] LABS: BASO % 1.6 % (0-6); EOS % 8.8 % (0-6); GRAN % 50.8 % (47-80); HEMATOCRIT 31.3 % (35.0-47.0); HEMOGLOBIN 9.7 gm/dl (11.6-16.0); LYMPH % 25.5 % (16-45); MEAN CELL VOLUME 102.3 fl (81-97); MEAN PLATELET VOLUME 8.9 fl (7.4-10.4); MONO % 13.3 % (0-9); PLATELET COUNT 92 K/uL (130-400); RED BLOOD COUNT 3.06 M/uL (3.80-5.40); RED CELL DISTRIBUTION WIDTH 22.5 % (11.5-14.5); WHITE BLOOD COUNT W/O DIFF 3.8 K/uL (4.2-12.2)
[2018-03-23 06:18] LABS: MEAN CORPUSCULAR HEMOGLOBIN 31.6 pg (27-33)
--- NOTE | 2018-03-23 08:58 | Discharge Summary ---
Providers Discharge Summary Date: 03/23/18 Date of admission: 03/06/18 14:45 Expected Date of Discharge: 03/23/18 Attending physician: HAMMAD CASILLAS Primary care physician: SAY MARKHAM D.O. Physical Exam - Vital Signs Vital Signs: Vital Signs - Last 24 Hrs Temp Pulse Resp BP Pulse Ox 03/23/18 07:52 99.1 F 57 L 18 97/50 97 03/22/18 20:00 98.4 F 61 16 103/55 94 L - General General Appearance: Alert, Cooperative, No acute distress Limitations: Physical limitation - Head Head exam: Normocephalic - Eye Eye exam: Normal appearance, PERRL - ENT ENT exam: Mucous membranes moist - Neck Neck exam: Normal inspection - Respiratory Respiratory exam: Normal lung sounds bilaterally. negative: Accessory muscle use - Cardiovascular Cardiovascular Exam: Regular rate, Normal rhythm, Normal heart sounds Peripheral Pulses: 2+: Radial (R), Radial (L), Dorsalis Pedis (R), Dorsalis Pedis (L) - GI/Abdominal GI/Abdominal exam: Soft, Normal bowel sounds. negative: Distended, Tenderness - Rectal Rectal exam: Deferred - exam: Deferred - Extremities Extremities exam: Pedal edema, Other (right arm in sling. Capillary refill 2 secs, bruising noted throughout extremity). negative: Calf tenderness, Tenderness - Neurological Neurological exam: Alert - Psychiatric Psychiatric exam: Other (tangential) - Skin Skin exam: Dry, Intact Hospitalization - Hospitalization Admission Diagnosis: Deconditioning due to fractured right humerus - Problem List (1) Closed fracture of right proximal humerus Current Visit: Yes Status: Acute Base Code: S42.201A - UNSP FRACTURE OF UPPER END OF RIGHT HUMERUS, INIT Comment: 03/23/2018 -PT/OT evaluation and treatment -NWB RUE, wear sling -F/u with Dr. Moyer on 03/20/2018 -Patient to dc home today with residental home health services established (2) Physical deconditioning Current Visit: Yes Status: Acute Base Code: R53.81 - OTHER MALAISE Comment : 03/23/2018 -Recent hospitalization [facility] s/p right humeral fracture after mechanical fall. -PT/OT daily -NWB to RUE, pt to wear sling -DC home today with residental home health services established (3) Blood in stool Current Visit: Yes Status: Acute Base Code: K92.1 - MELENA Comment: : Patient was having some mild confusion during hospitalization. CBC was checked, hemoglobin found to be 7.0. Patient received 2 units PRBC and repeat hbg 9.7. Fecal occult blood was positive. -No loretta blood in stools or dark black stools noted -Patient has chronic anemia, hgb nml 9. -Appt with PCP scheduled for next week -Appt with GI scheduled for 3 weeks to follow-up on GI concerns (4) Full code status Current Visit: Yes Status: Acute Base Code: Z78.9 - OTHER SPECIFIED HEALTH STATUS Comment: 03/23/2018 -Pt is a full code - Hospitalization Course Disposition: Home Health Service Reason For Discharge/Transfer: Medical Stability Name of person accompanying patient: [place] Hospital Course: Alma Rosa Castaneda is a 73 year old female who admitted to [facility] on 03/01/2018 after sustaining a right proximal humerus fracture d/t a mechanical fall in her home as well as osteoporosis. She was followed by orthopedist Dr. Moyer while hospitalized. No surgical intervention was done. While hospitalized, she received a CT of her head and cervical spine which were negative for acute process. D/t physical deconditioning and pain control, pt required further pt/ot services. 03/07/2018: Pt is a poor historian at this time and it is difficult to ascertain medical history. She reports that she has a hx of HTN but doesn't know what meds she takes for it, that she was told once that she had diabetes but "keeps it controlled, less than 200, with food" and that she has been "spilling ammonia since 2015". Review of the her records indicates PMHx of HTN, Cirrhosis of Liver , Dementia, hypothyroidism, diabetes mellitus and GERD. States that her PCP is Dr. Markham. Pt c/o pain 5/10 at rest in the right upper arm that is "not tolerable". Reports numbness and tingling in right finger tips. Pt is taking [place] 5/235mg nearly every 4 hours. Vitals: BP 94/50, HR 56 which are similar to recordings while hospitalized at [facility] and no adjustments were made to propranolol or spironolactone. Pt denies dizziness or lightheadedness. 03/23/18: Patient alert and oriented x 3, remains tangential when talking with patient. Patient has participated in PT/OT while at [facility], is safe to dc home at this time. During admission patient has been treated for a UTI and GI bleed. She received 2 units of PRBC due to low hgb of 7.0. Patient also had a fall while hospitalized. She was attempting to sit down in a wheelchair which moved from underneath her. Patient then slid onto the floor, hitting her head. Head CT was negative for any acute process. Patient has residental home health services established, appointment with PCP next week, and appt with GI in 3 weeks. Procedures: Imaging and X-Rays 03/20/18 16:38 HEAD WO CONTRAST [CT] Stat Abnormal Labs: Abnormal Lab Results 03/08/18 03/09/18 03/10/18 Range/Units 07:31 06:49 17:00 WBC (4.2-12.2) K/uL RBC (3.80-5.40) M/uL Hgb (11.6-16.0) gm/dl Hct (35.0-47.0) % MCV (81-97) fl MCHC (32-36) g/dl RDW (11.5-14.5) % Plt Count (130-400) K/uL Monocytes % (0-9) % Eosinophils % (0-6) % Eosinophil Count (0-6) % Chloride (98-107) mmol/L POC Glucose 124 H 121 H 163 H (70-110) mg/dL Random Glucose (74-109) mg/dL Calcium (8.8-10.2) mg/dL Total Bilirubin (0.2-1.0) mg/dL Ammonia (11.0-51.0) umol/L Total Protein (6.6-8.7) g/dL Albumin (4.0-5.0) g/dL Albumin/Globulin Ratio (1.1-1.8) Stool Occult Blood (NEGATIVE) 03/21/18 03/21/18 03/21/18 Range/Units 12:00 12:23 12:23 WBC 2.6 L (4.2-12.2) K/uL RBC 2.13 L (3.80-5.40) M/uL Hgb 7.0 L (11.6-16.0) gm/dl Hct 23.1 L (35.0-47.0) % MCV 108.5 H (81-97) fl MCHC 30.3 L (32-36) g/dl RDW 22.4 H (11.5-14.5) % Plt Count 74 L (130-400) K/uL Monocytes % (0-9) % Eosinophils % (0-6) % Eosinophil Count 7.0 H (0-6) % Chloride 109 H (98-107) mmol/L POC Glucose (70-110) mg/dL Random Glucose 128 H (74-109) mg/dL Calcium 8.7 L (8.8-10.2) mg/dL Total Bilirubin 1.10 H (0.2-1.0) mg/dL Ammonia 86 H (11.0-51.0) umol/L Total Protein 5.6 L (6.6-8.7) g/dL Albumin 2.7 L (4.0-5.0) g/dL Albumin/Globulin Ratio 0.9 L (1.1-1.8) Stool Occult Blood (NEGATIVE) 03/21/18 03/22/18 03/22/18 Range/Units 17:00 06:26 06:26 WBC 2.2 L (4.2-12.2) K/uL RBC 2.34 L (3.80-5.40) M/uL Hgb 7.6 L (11.6-16.0) gm/dl Hct 24.7 L (35.0-47.0) % MCV 105.6 H (81-97) fl MCHC 30.8 L (32-36) g/dl RDW 23.0 H (11.5-14.5) % Plt Count 66 L (130-400) K/uL Monocytes % (0-9) % Eosinophils % (0-6) % Eosinophil Count (0-6) % Chloride (98-107) mmol/L POC Glucose (70-110) mg/dL Random Glucose (74-109) mg/dL Calcium (8.8-10.2) mg/dL Total Bilirubin (0.2-1.0) mg/dL Ammonia 57 H (11.0-51.0) umol/L Total Protein (6.6-8.7) g/dL Albumin (4.0-5.0) g/dL Albumin/Globulin Ratio (1.1-1.8) Stool Occult Blood Positive H (NEGATIVE) 03/23/18 Range/Units 06:05 WBC 3.8 L (4.2-12.2) K/uL RBC 3.06 L (3.80-5.40) M/uL Hgb 9.7 L (11.6-16.0) gm/dl Hct 31.3 L (35.0-47.0) % MCV 102.3 H (81-97) fl MCHC 31.0 L (32-36) g/dl RDW 22.5 H (11.5-14.5) % Plt Count 92 L (130-400) K/uL Monocytes % 13.3 H (0-9) % Eosinophils % 8.8 H (0-6) % Eosinophil Count (0-6) % Chloride (98-107) mmol/L POC Glucose (70-110) mg/dL Random Glucose (74-109) mg/dL Calcium (8.8-10.2) mg/dL Total Bilirubin (0.2-1.0) mg/dL Ammonia (11.0-51.0) umol/L Total Protein (6.6-8.7) g/dL Albumin (4.0-5.0) g/dL Albumin/Globulin Ratio (1.1-1.8) Stool Occult Blood (NEGATIVE) Condition at Discharge: (2) Stable Discharge Medications - Discharge Medications Prescriptions: Lidocaine Patch [Lidoderm] 1 each TOP DAILY #10 patch Home Medications: Ambulatory Orders Lactulose 30 gm PO TID 12/20/13 [Last Taken 09/11/14] Pantoprazole Sodium 40 mg PO 1200 12/20/13 [Last Taken 09/11/14] Propranolol HCl 10 mg PO TID 12/20/13 [Last Taken 09/11/14] Spironolactone [Aldactone] 100 mg PO DAILY 12/20/13 [Last Taken 09/11/14] Ferrous Sulfate [Iron] 325 mg PO BID 09/12/14 [Last Taken 09/11/14] Cholecalciferol (Vitamin D3) [Vitamin D3] 2,000 unit PO BID 03/06/18 [Last Taken Unknown] Guaifenesin [Mucinex] 600 mg PO BID 03/06/18 [Last Taken Unknown] Hydrocodone/Acetaminophen [Canton 5-325 Tablet] 1 each PO Q4H PRN 03/06/18 [Last Taken Unknown] Levothyroxine Sodium [Synthroid] 75 mcg PO DAILY 03/06/18 [Last Taken Unknown] Fairview-3 Fatty Acids [Fairview-3] 1,000 mg PO DAILY 03/06/18 [Last Taken Unknown] Vitamin B Complex 1 each PO DAILY 03/06/18 [Last Taken Unknown] Lidocaine Patch [Lidoderm] 1 each TOP DAILY #10 patch 03/23/18 [Last Taken Unknown] Discharge Plan - Discharge Instructions Activity at Discharge: As Per Physical Therapy, Increase Activity as Tolerated Diet at Discharge: Advance to Usual Diet Additional Instructions: -Appointment with Dr. Markham Monday 03/26 at 2:15PM -Appointment with Uriah Akers with [facility] on 04/19 at 1:00PM at [facility] -Residential home health will be coming out this weekend -Continue taking [place]on as needed for pain -Use the Lidocaine patches on your shoulder as needed Quality Measures - Quality Measures Quality Measures: Advance Directives, Documentation of Current Medications in Medical Record, Elder Maltreatment Screen and Follow-Up Plan, Screening for High Blood Pressure and F/U Documented - Current Medications Quality Measure: Measure #130: Documentation of Current Medications Documentation of Current Medications: <Current Medications Documented/Reviewed> [G8194] - Blood Pressure Screening Quality Measure: Screening for High Blood Pressure and Follow-Up Documented Does Patient Have Any of the Following: Active Dx of HTN Blood Pressure Classification: Normal BP Reading Systolic Measurement: 112 Diastolic Measurement: 58 Screening for High Blood Pressure: Patient Exclusion, Hx of HTN [G9744] - Advance Directives Quality Measure: Measure #47: Care Plan Advance Directives Established: Yes Advance Directives Information Provided To Patient: No Advance Directives on File: Yes Living Will: No Power of Clinical Documentation Spec: Yes Power of Clinical Documentation Spec Name: [employer] Advance Care Planning: <Care Plan/Decision Maker Documented; Discussed & Documented> [1120F] - Elder Abuse Suspicion Index Screening: Elder Abuse Suspicion Index Screening Rely on people for bathing, dressing, shopping, banking, etc: No Prevented from getting food, clothes, medication, etc: No Made to feel shamed or threatened by someone: No Forced to sign papers or use money against will: No Feel afraid, touched in ways not wanted or hurt physically: No Poor eye contact, withdrawn, malnourished, cuts or bruises: No Screening Result: Negative result EASI Reference Information: Priscilla TAYLOR, Cierra Deluca, Annelise Martinez, Yogesh Perez.Development and validation of a tool to assist physicians identification of elder abuse: The Elder Abuse Suspicion Index (EASI ). Journal of Elder Abuse and Neglect, 2008; 20 (3): 276-300. - Elder Maltreatment Screen Quality Measures: Elder Maltreatment Screen and Follow-Up Plan Elder Maltreatment Screen: <Negative, No Follow-Up Plan Required> [G8734]
[2018-03-23] MEDS: LACTULOSE 20 GM/30 ML UDC PO SCH (10:08)
[2018-03-23] MEDS: CHOLECALCIFEROL 1,000 UNIT TABLET PO SCH (10:09)
[2018-03-23] MEDS: PROPRANOLOL HCL 10 MG TABLET PO SCH (10:10)
[2018-03-23] MEDS: SPIRONOLACTONE 25 MG TAB PO SCH (10:10)
[2018-03-23] MEDS: MULTIVITAMINS/MINERALS TABLET PO SCH (10:10)
[2018-03-23] MEDS: GUAIFENESIN 600 MG TABCR PO SCH (10:10)
[2018-03-23] MEDS: FERROUS SULFATE 325 MG TAB PO SCH (10:10)
[2018-03-23] MEDS: HYDROCODONE/APAP 7.5/325MG TABLET PO PRN (10:11)
[2018-03-23] MEDS: LIDOCAINE 5% PATCH TOP SCH (10:11)
[2018-03-23] MEDS: ACETAMINOPHEN 325 MG TAB PO SCH (10:11)
--- NOTE | 2018-03-23 10:34 | Rehab Discharge Summary ---
Patient Information - Patient Information Diagnosis: general deconditioning d/t R humeral fx s/p fall Ordered Treatment: PT Evaluate and Treat Surgery: No Past Medical/Surgical Hx: PAST MEDICAL/SURGICAL HISTORY Past Surgical History Abd surgery for adhesions of intestinal tract. ; T&A PMH - Respiratory Hx Respiratory Disorders Yes Comment: lung disease PMH - Cardiovascular Hx Cardiovascular Disorders No Hx Hypertension Yes PMH - Neuro Hx Neurological Disorders Yes Hx Dementia Yes PMH - GI Hx Liver Disease Yes Hx Rectal Bleeding Yes: Varices Comment: portal hypertension and cirrhosis PMH - Hx Genitourinary Disorders No PMH - Endocrine Hx Endocrine Disorders Yes Hx Diabetes Yes Hx Thyroid Disease No PMH - Musculoskeletal Hx Musculoskeletal Disorders No Hx Arthritis Yes PMH - Psych Hx Psychiatric Problems No PMH - Hematology/Oncology Hx Hematology/Oncology No Disorders Premorbid Status: Detail (Pt. was modified Ind. with mobility (with use of small base quad cane) prior to fall. Modified Ind. with self-care skills and indoor household management. Pt. has not driven since 2014, and receives assistance from her friend Heron with transportation and to bring groceries as needed. Pt. previously stood while showering 2-3x/week, and took sponge baths in between as needed. 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 currently lives alone in a 1 story house with basement. 1 large step to enter with railing on L side ascending. Pt. does not go into the basement; all needs are met on main floor, including laundry. Bathroom has a standard toilet with no grab bars, and tub/shower combo with curtain, fixed shower head, and 1 grab bar. Pt. stated she has everything in boxes and plans to move but was unsure of when.) Precautions: [place], Fall, Other ([id number] on RUE. Wear sling.) Subjective Information - Subjective Information Per Patient (The patient continues to have R UE pain radiating into R forearm and hand, with varying pain level.) Objective Data - Mental Status Patient Orientation: Oriented x3 (The patient exhibited poor safety jugement and decreased awareness of deficits ie: not appropriately using cane, ambulating without device, opening wheelchair in hallway without asking for help.) - ROM Within normal limits (The patient's LE AROM was WNL. Refer to OT note for UE AROM.) - Strength/Tone Not within normal limits (The patient's LE strength is generally 4+/5. Initially the patient's hip musculature was 4/5 and knee and ankle musculature was 4+/5.) - Bed Mobility Independent (The patient is independent with supine to and from sit transfer and scooting up in bed.) - Transfers Independent (The patient is independent with sit to and from stand transfer and toilet transfer. The patient does not consistently follow safe transfer techniques ie: use cane for toilet transfer without verbal cues.) - Balance Balance Sitting: Good Balance Standing: Fair (The patient's balance using the Tinetti Assessment Tool was 22/28- same as initially. The patient is in the moderate risk for falling category.) - Gait Detail (The patient ambulated with SBQC community distances with supervision for safety and verbal cues due to poor safety judgement and occasional incorrect use of SBQC. A trial of standard single point cane was completed with improved safe placement noted vs. use of SBQC. The patient was reluctant fo switch to standard cane however due to patient stated she was unable to set standard cane down anywhere. The patient ambulated on 3 steps with use of one railing and SBQC with supervision for safety.) Therapy Assessment - Therapy Assessment Detail (The patient exhibited improved LE strength. The patient continues to exhibit moderate risk for fall, lack of awareness and poor safety judgement. The patient's balance was unchanged from the initial evaluation using the Tinetti Assessment Tool. An assisted living facility is recommended due to safety concerns and patient's frequent falls. The patient at this time is refusing assisted living facilities, desiring to live independently. The patient is to receive Home OT/PT services to further assess the patient's safety in home environment.) Patient Education - Patient Education Teaching Topic: Exercise/Activity (The patient was independent with LE strengthening exercises including: hip marching, hip adductor squeezes, ankle pumps, resisted hip abduction with red T-band,LAQ and hamstring curls. The patient was also completing shoulder exercises per orthopedic physicians protocol with supervision and verbal cues for proper technique. The patient required supervision to complete balance exercises and was not issued a HEP for those exercises.) Response: Return Demonstration Teaching Method: Demonstration, Handout Teaching Recipient: Patient Barriers To Learning: Age Related, Cognitive/Verbal, Cognitive/Written Problem List - Problem List Physical Therapy Problem List: Detail (1) Decreased balance 2) Decreased bilateral hip strength 3) Decreased ability to complete prolonged physical activity.) Occupational Therapy Problem List: Detail (Decreased independence and safety with ADL's, impaired ROM and strength RUE, decreased strength LUE, decreased tolerance for activity participation (endurance)) Goals - Goals Physical Therapy Goals: 1) The a patient will ambulate with assistive device distances of 150 feet(Goal met). 2) The patient will ambulate on stairs independently with use of railings. (Goal partially met-supervision for safety) . 3) Increase LE strength 1/3 muscle grade to increase stability of gait ( Goal Met). 4) Assess balance using objective balance test:(Goal Met) Tinetti on 03/08/18. 5) The patient will tolerate 30 minutes of physical activity. (Goal Met). 6) The patient's balance will improve to using Tinetti Assessment Tool. (Goal not met) Occupational Therapy Goals: 1) Test RUE AROM per pt's tolerance. 2) Pt. will demo. ability to safely dress TB with modified Ind. 3) Pt. will demo. tub t/f safely with modified Ind. 4) Pt. will increase activity tolerance to at least 10 mins. to allow pt. to complete typical morning ADL routine with no more than 3 seated rest breaks. 5) Maximize bilateral steaming cabinet tender strength to minimize R muscular atrophy. 6) Maximize RUE AROM (per pt's tolerance and precautions) to prevent adhesive capsulitis and other joint problems. Plan - Plan Physical Therapy Plan: The patient is discharged from [facility] to home. The patient is to receive Home PT/OT services. Occupational Therapy Plan: Pt. will be seen 2-4 x/week Mon-Fri during typical business hours until OT goals are met and/or pt. is d/c.
--- NOTE | 2018-03-26 08:09 | Rehab Discharge Summary ---
Patient Information - Patient Information Diagnosis: general deconditioning d/t R humeral fx s/p fall Ordered Treatment: OT Evaluate and Treat Surgery: No Past Medical/Surgical Hx: PAST MEDICAL/SURGICAL HISTORY Past Surgical History Abd surgery for adhesions of intestinal tract. ; T&A PMH - Respiratory Hx Respiratory Disorders Yes Comment: lung disease PMH - Cardiovascular Hx Cardiovascular Disorders No Hx Hypertension Yes PMH - Neuro Hx Neurological Disorders Yes Hx Dementia Yes PMH - GI Hx Liver Disease Yes Hx Rectal Bleeding Yes: Varices Comment: portal hypertension and cirrhosis PMH - Hx Genitourinary Disorders No PMH - Endocrine Hx Endocrine Disorders Yes Hx Diabetes Yes Hx Thyroid Disease No PMH - Musculoskeletal Hx Musculoskeletal Disorders No Hx Arthritis Yes PMH - Psych Hx Psychiatric Problems No PMH - Hematology/Oncology Hx Hematology/Oncology No Disorders Premorbid Status: Detail (Pt. was modified Ind. with mobility (with use of small base quad cane) prior to fall. Modified Ind. with self-care skills and indoor household management. Pt. has not driven since 2014, and receives assistance from her friend Heron with transportation and to bring groceries as needed. Pt. previously stood while showering 2-3x/week, and took sponge baths in between as needed. Pt. has a quad cane and payer specialist at home.) Social History: Detail (Pt. currently lives alone in a 1 story house with basement. 1 large step to enter with railing on L side ascending. Pt. does not go into the basement; all needs are met on main floor, including laundry. Bathroom has a standard toilet with no grab bars, and tub/shower combo with curtain, fixed shower head, and 1 grab bar. Pt. stated she has everything in boxes and plans to move but was unsure of when.) Precautions: [place], Fall, Other ([id number] on RUE. Wear sling.) Subjective Information - Subjective Information Per Patient Objective Data - Pain Pain Present: Yes (Right UE pain at times) - Mental Status Patient Orientation: Oriented x3 (Pt displays poor safety awareness at times.) - Visual Perception Appears within normal limits for therapeutic activities - ROM Not within normal limits (Right shoulder AROM 45 degrees flexion, right elbow, forearm, wrist and hand AROM WNL. Left UE AROM WNL.) - Strength/Tone Not within normal limits (Right shoulder and elbow not tested due to fracture, right natural gas shothole driller 4/5, left UE strength 4+/5) - Coordination Appears within normal limits for therapeutic activities - Bed Mobility Independent - Transfers Independent - Balance Balance Sitting: Good Balance Standing: Fair - Sensation Intact - Gait Detail (Pt ambulating with straight cane but requires verbal cues at times to use cane.) - ADL's/IADL's Detail (Pt is Ind with showering, dressing and grooming/hygiene. She requires verbal cueing at times for modified UE dressing technique. Pt able to complete simple meal prep task in kitchen with verbal cues for modified technique.) Therapy Assessment - Therapy Assessment Detail (Pt is Ind with self cares and light meal prep activities.) Problem List - Problem List Physical Therapy Problem List: Detail (1) Decreased balance 2) Decreased bilateral hip strength 3) Decreased ability to complete prolonged physical activity.) Occupational Therapy Problem List: Detail (Decreased independence and safety with ADL's, impaired ROM and strength RUE, decreased strength LUE, decreased tolerance for activity participation (endurance)) Goals - Goals Physical Therapy Goals: 1) The a patient will ambulate with assistive device distances of 150 feet(Goal met). 2) The patient will ambulate on stairs independently with use of railings. (Goal partially met-supervision for safety) . 3) Increase LE strength 1/3 muscle grade to increase stability of gait ( Goal Met). 4) Assess balance using objective balance test:(Goal Met) Tinetti 22/28 on 03/08/18. 5) The patient will tolerate 30 minutes of physical activity. (Goal Met). 6) The patient's balance will improve to using Tinetti Assessment Tool. (Goal not met) Occupational Therapy Goals: Goals Met: 1) Test RUE AROM per pt's tolerance. 2 ) Pt. will demo. ability to safely dress TB with modified Ind. 3) Pt. will demo. tub t/f safely with modified Ind. 4) Pt. will increase activity tolerance to at least 10 mins. to allow pt. to complete typical morning ADL routine with no more than 3 seated rest breaks. 5) Maximize bilateral natural gas shothole driller strength to minimize R muscular atrophy. 6) Maximize RUE AROM (per pt's tolerance and precautions) to prevent adhesive capsulitis and other joint problems. Prognosis - Prognosis Good Plan - Plan Physical Therapy Plan: The patient is discharged from [facility] to home. The patient is to receive Home PT/OT services. Occupational Therapy Plan: Pt discharged home on 03/23/18 with home OT/PT.
== END 2018-03-23 10:55 | disposition home health service (06) | DRG 948 ==
LOC: MEDSURG 14:45
PROVIDERS: ADMIT Internal Medicine; ATTEND Internal Medicine
DX: R53.81 Other malaise (principal); S42.201A Unspecified fracture of upper end of right humerus, initial encounter for closed fracture; M80.821A Other osteoporosis with current pathological fracture, right humerus, initial encounter for fracture; K92.1 Melena; N39.0 Urinary tract infection, site not specified; I10 Essential (primary) hypertension; E11.9 Type 2 diabetes mellitus without complications; E03.9 Hypothyroidism, unspecified; I95.9 Hypotension, unspecified; F03.90 Unspecified dementia, unspecified severity, without behavioral disturbance, psychotic disturbance, mood disturbance, and anxiety; K21.9 Gastro-esophageal reflux disease without esophagitis; K74.60 Unspecified cirrhosis of liver; D53.9 Nutritional anemia, unspecified
CPT/HCPCS: 36416; 70450; 80053; 82140; 82272; 82948; 85025; 85027; 86850; 86900; 86901; 94760; 97110; 97166; 97530; 97535; 99305; 99309; 99315; J1650